=== PATIENT | female | born 1970 | race Asian ===

== ENCOUNTER 2019-06-05 23:05 | Inpatient (IN) | payer MEDICAID ==
[~2019-06-05] VITALS: Ht 162.6 cm; Wt 83.0 kg
[~2019-06-05 23:05] MED LIST: ASCO500T11 PO; ATOR20TA50 PO; FENO160T8 PO; LEVO25TA6 PO; METF-370 PO; OMEG1CAP59 PO; [UNRECOGNIZED DRUG - CODE] PO; [UNRECOGNIZED DRUG - CODE] PO
[2019-06-06] VITALS (28 sets, daily range): BP systolic 66–121; BP diastolic 36–76
[2019-06-06 00:10] LABS: Basophils # (auto) 0 10 ^3/uL (0-0.2); Basophils % (auto) 0.2 % (0.0-2.0); Eosinophils # (auto) 0 10 ^3/uL (0-0.8); Eosinophils % (auto) 0.2 % (0.0-7.0); Monocytes # (auto) 0.6 10 ^3/uL (0-1.3)
[2019-06-06 00:12] LABS: Hemoglobin 8.3 g/dL (12.2-16.2); Lymphocytes # (auto) 0.8 10 ^3/uL (0.4-5.4); Lymphocytes % (auto) 7.4 % (10.0-50.0); Mean Corpuscular Hemoglobin 28.1 pg (28.0-32.0); Mean Corpuscular Hgb Conc. 33.1 g/dL (32.0-36.0); Mean Corpuscular Volume 84.8 fL (80.0-100.0); Monocytes % (auto) 6.1 % (0.0-12.0); Neutrophils % (auto) 86.1 % (37.0-80.0); Platelet Count (auto) 315 10^3/uL (140-450); Red Blood Cells 2.95 10^6/uL (4.0-5.20); Red Cell Distribution Width 16.5 % (11.8-14.3); White Blood Cell 10.5 10^3/uL (4.4-10.8)
[2019-06-06] MEDS ORDERED: SODIUM CHLORIDE 0.9% 1,000 ML IV ONE ×2 (00:15→01:15)
[2019-06-06] MEDS ORDERED: cefTRIAXone 1GM/50ML D5W 50 ML IV ONE (00:15)
[2019-06-06] MEDS ORDERED: PHENYLEPHRINE IV 250 ML IV ONE (00:15)
[2019-06-06 00:33] LABS: Alanine Aminotransferase 23 U/L (13-56); Albumin 2.3 g/dL (3.4-5.0); Anion Gap 14 (5-15); Aspartate Aminotransferase 28 U/L (15-37); BUN/Creatinine Ratio 18.8; Blood Urea Nitrogen 15 mg/dL (7-18); Calcium 8.1 mg/dL (8.5-10.1); Carbon Dioxide 17 mmol/L (21-32); Chloride 99 mmol/L (98-107); GFR African American 98 mL/min; GFR Non-African American 81 mL/min; Glucose 121 mg/dL (74-106); Potassium 3.1 mmol/L (3.5-5.1); Sodium 130 mmol/L (136-145)
[2019-06-06 00:37] LABS: Urine Bacteria MANY /hpf (None Seen); Urine Blood TRACE /uL (Negative); Urine Hyaline Cast FEW /lpf (0 - 2); Urine Mucus FEW (None Seen); Urine Specific Gravity 1.011 (1.001-1.035); Urine WBC 67 /hpf (0 - 5); Urine WBC Clumps PRESENT /hpf (None Seen)
[2019-06-06 00:38] LABS: Alkaline Phosphatase 112 U/L (45-117); INR 1.28 (0.9-1.15); Lactic Acid w/Reflex 2.1 mmol/L (0.4-2.0); Partial Thromboplastin Time 39.4 sec (23.64-32.05); Total Protein 6.5 g/dL (6.4-8.2)
[2019-06-06] MEDS: NOREPINEPHRINE 8 MG/250ML KIT 250 ML IV SCH ×2 (01:09→22:14)
[2019-06-06] MEDS ORDERED: DOCUSATE SOD 100 MG CAP PO PRN (01:15)
[2019-06-06] MEDS ORDERED: ALBUTEROL SULF 2.5 MG/0.5ML(0.5%) NEB SOLN NEB PRN (01:15)
[2019-06-06] MEDS ORDERED: DEXTROSE (50%) 50ML SYRG IV PRN (01:15)
[2019-06-06] MEDS ORDERED: MORPHINE SULFATE 4 MG/ML SYR/VIAL IV PRN (01:15)
[2019-06-06] MEDS ORDERED: IPRATROPIUM BROM 0.5 MG/2.5ML INH SOL NEB PRN (01:15)
[2019-06-06] MEDS: POTASSIUM CHL 20MEQ/100ML 100 ML IV SCH ×2 (02:26→05:29)
[2019-06-06] MEDS: ACCU-CHEK COMFORT CURVE STRIP VI SCH ×5 (04:56→20:20)
[2019-06-06] MEDS: InsuLIN REG 1unit/0.01ml Soln (100units/ml) SC SCH ×5 (05:03→20:00)
[2019-06-06] MEDS: ACETAMINOPHEN 325 MG TAB PO PRN (05:31)
[2019-06-06 05:43] LABS: Eosinophils # (auto) 0 10 ^3/uL (0-0.8); Lymphocytes # (auto) 0.5 10 ^3/uL (0.4-5.4)
--- NOTE | 2019-06-06 05:44 | NUR ---
PRN MN TX NOT INDICATED AT THIS TIME. PT RESTING COMFORTABLE. NO SOB OR ANY OTHER RESPIRATORY DISTRESS NOTED. PT ON 2L/MIN VIA NC, 99% O2 SATS. BS ARE CLEAR T AUSCULTATION. WILL CONTINUE TO MONITOR PT.
[2019-06-06 05:46] LABS: Basophils # (auto) 0 10 ^3/uL (0-0.2); Basophils % (auto) 0.2 % (0.0-2.0); Eosinophils % (auto) 0.1 % (0.0-7.0); Hematocrit 25.5 % (36.0-46.0); Lymphocytes % (auto) 3.6 % (10.0-50.0); Mean Corpuscular Hemoglobin 27.5 pg (28.0-32.0); Mean Corpuscular Hgb Conc. 31.4 g/dL (32.0-36.0); Mean Corpuscular Volume 87.4 fL (80.0-100.0); Monocytes # (auto) 0.4 10 ^3/uL (0-1.3); Monocytes % (auto) 2.5 % (0.0-12.0); Neutrophils # (auto) 14.1 10 ^3/uL (1.6-8.6); Neutrophils % (auto) 93.6 % (37.0-80.0); Platelet Count (auto) 362 10^3/uL (140-450); Red Blood Cells 2.92 10^6/uL (4.0-5.20); Red Cell Distribution Width 16.5 % (11.8-14.3)
[2019-06-06 05:57] LABS: Calcium 7.5 mg/dL (8.5-10.1); Potassium 3.6 mmol/L (3.5-5.1)
[2019-06-06] MEDS: LEVOTHYROXINE SODIUM 25 MCG TAB PO SCH (06:54)
[2019-06-06] MEDS: PHENYLEPHRINE IV 250 ML IV SCH ×3 (07:15→15:35)
[2019-06-06] MEDS ORDERED: LORazepam 2MG/ML-1ML VIAL ONE (08:21)
[2019-06-06] MEDS ORDERED: LORazepam 2MG/ML-1ML VIAL IV PRN ×2 (08:30→13:45)
[2019-06-06] MEDS ORDERED: SODIUM CHLORIDE 0.9% 1,000 ML IV SCH (08:45)
[2019-06-06] MEDS ORDERED: MORPHINE SULF INJ 2 MG/ML SYRINGE 1ML IV PRN (09:00)
[2019-06-06] MEDS ORDERED: VANCOMYCIN PER PHARMACY 0 MG IV SCH (11:30)
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
--- NOTE | 2019-06-06 12:00 | NUR ---
WOUND CARE NOTE: VCP 500 AIR BED ORDERED AT THIS TIME. PATIENT TO BE PLACED, PENDING DELIVERY BY BILLY WALDRON
[2019-06-06] MEDS: ENOXAPARIN SOD 40 MG/0.4 ML SYRINGE SC SCH (12:23)
[2019-06-06] MEDS: ATORVASTATIN 20 MG TAB PO SCH (12:23)
[2019-06-06] MEDS: SODIUM CHLORIDE 0.9% 1,000 ML IV SCH ×2 (12:31→19:50)
[2019-06-06] MEDS: cefTRIAXone 1GM/50ML D5W 50 ML IV SCH (12:31)
[2019-06-06] MEDS ORDERED: IOHEXOL 350 MG/ML 100ML IJ ONE (13:52)
[2019-06-06] MEDS ORDERED: VANCOMYCIN 1GM/250ML 250 ML IV SCH (14:00)
--- NOTE | 2019-06-06 16:45 | NUR ---
Admit to ICU TOMASZ VIDES admitted to ICU via gurney on security monitor, and portable 02. Patient transferred to bed, connected to unit monitoring and oxygen, and weighed by bed scale. Patient oriented to JOSE RAMON IZAGUIRRE RN primary RN, unit, room, bed, and unit policies regarding patient care and visiting hours. All questions and concerns addressed, patient verbalized understanding.
--- NOTE | 2019-06-06 19:01 | NUR ---
RT NOTE PT ASSESSED BY RT. PT ON 2LPM O2 WITH NC. PT TOLERATING WELL. B/S CLEAR. PT RESPONDS APPROPRIATELY TO RT QUESTIONS. PT SHOWING NO SIGNS OF RESP DISTRESS. PT DENIES ANY SOB. PT AWARE TO HAVE RT PAGED IF PRN TX NEEDED.
--- NOTE | 2019-06-06 20:00 | NUR ---
RECIEVED PATIENT RESTING WITH EYES CLOSED BUT EASILY AROUSABLE, RESPONDS APPROPRIATLY TO QUESTIONS AND SPEECH IS CLEAR, DENIES ANY PAIN, AFEBRILE, BP LOW IN 70'S, TITRATING LEVOPHED DRIP AT THIS TIME, SEE INTERVENTIONS FOR HEAD TO TOE ASSESSMENT AND VITAL SIGNS, PT REPOSITONED TO RIGHT SIDE, CLEANSED OF SMALL FORM BRN STOOL, OPTIFOAM DRSG OVER COCCYX AREA AND LEFT ISCHIUM INTACT
[2019-06-06] MEDS: levETIRAcetam 500 MG TAB PO SCH (20:22)
--- NOTE | 2019-06-06 21:30 | NUR ---
SPOKE WITH PTS BROTHER CLARA, UPDATE GIVEN ON PT VS,MEDICATION FOR BP SUPPORT, EXPRESSES DISAPOINTMENT IN NOT BEING ABLE TO VISIT, REASSURED TO HE CAN CALL ANYTIME FOR UPDATES
[2019-06-07] VITALS (83 sets, daily range): BP systolic 75–152; BP diastolic 38–99
--- NOTE | 2019-06-07 | NUR ---
PT REQUESTING "TYLENOL" FOR GENERALIZED DISCOMFORT, TYLENOL 650MG PO GIVEN, PT SIPS A CUP AT A TIME OF H20 APPROXIMATELY Q 2 HRS WITHOUT DIFFICULTY SWALLOWING
[2019-06-07] MEDS: ACETAMINOPHEN 325 MG TAB PO PRN ×4 (00:22→20:22)
[2019-06-07] MEDS: SODIUM CHLORIDE 0.9% 1,000 ML IV SCH ×3 (00:41→21:19)
[2019-06-07] MEDS: NOREPINEPHRINE 8 MG/250ML KIT 250 ML IV SCH ×2 (01:32→20:00)
--- NOTE | 2019-06-07 03:00 | NUR ---
PT REPOSITONED TO LEFT SIDE,PARTIAL WANDA CHANGED AFTER PAD NOTED TO BE MOIST NO BM, THE SKIN OPENING NOTED TO RIGHT ISCHIUM 2CMX 1.5 CM WITH TUNNELING APPROX 2.5 CM, AT THIS TIME COVERED WITH OPTIFOAM DRG
--- NOTE | 2019-06-07 03:10 | NUR ---
PT FEBRILE TEMP 101.2 AND C/O HEADACHE SCALE #4 REQUESTING TYLENOL, 650 MG GIVEN PO
[2019-06-07 04:36] LABS: Basophils # (auto) 0 10 ^3/uL (0-0.2); Monocytes # (auto) 0.8 10 ^3/uL (0-1.3)
[2019-06-07 04:40] LABS: Basophils % (auto) 0.2 % (0.0-2.0); Eosinophils # (auto) 0.4 10 ^3/uL (0-0.8); Eosinophils % (auto) 2.2 % (0.0-7.0); Hemoglobin 7.6 g/dL (12.2-16.2); Lymphocytes # (auto) 0.8 10 ^3/uL (0.4-5.4); Lymphocytes % (auto) 4.6 % (10.0-50.0); Mean Corpuscular Hgb Conc. 33.1 g/dL (32.0-36.0); Mean Corpuscular Volume 84.7 fL (80.0-100.0); Monocytes % (auto) 4.2 % (0.0-12.0); Neutrophils # (auto) 16.4 10 ^3/uL (1.6-8.6); Neutrophils % (auto) 88.8 % (37.0-80.0); Platelet Count (auto) 414 10^3/uL (140-450); Red Blood Cells 2.72 10^6/uL (4.0-5.20); Red Cell Distribution Width 16.5 % (11.8-14.3); White Blood Cell 18.4 10^3/uL (4.4-10.8)
[2019-06-07 04:42] LABS: Albumin 1.8 g/dL (3.4-5.0); BUN/Creatinine Ratio 20.6; Calcium 7.5 mg/dL (8.5-10.1); Potassium 3.4 mmol/L (3.5-5.1)
[2019-06-07 04:45] LABS: Bilirubin, Total 0.7 mg/dL (0.2-1.0); Total Protein 5.4 g/dL (6.4-8.2)
[2019-06-07] MEDS: InsuLIN REG 1unit/0.01ml Soln (100units/ml) SC SCH ×6 (06:15→20:00)
--- NOTE | 2019-06-07 07:00 | NUR ---
RECEIVED REPORT FROM [employer] ASSEMBLER. PT AWAKE ALERT AND ORIENTED. DENIES ANY DISCOMFORT AT THIS TIME. PT STILL ON LEVOPHED TO KEEP SBP > 90. INITIAL ASSESSMENT COMPLETED, SEE PHYSICAL ASSESSMENT FOR DATA.
--- NOTE | 2019-06-07 07:25 | NUR ---
Respiratory note: PT ASSESSED FOR PRN TX. PT AWAKE, ALERT AND RESPONSIVE. PT FOUND ON 2 LPM NC. HR: 101, RR:22. SP02: 100%. B/S ARE CLEAR. PT IS IN NO DISTRESS AT THIS TIME. INFORMED PT TO HAVE RT PAGED IF THEY BECOME SOB. NO TX INDICATED AT THIS TIME.
[2019-06-07] MEDS: ACCU-CHEK COMFORT CURVE STRIP VI SCH ×5 (08:00→20:21)
[2019-06-07] MEDS: PHENYLEPHRINE IV 250 ML IV SCH ×2 (08:15→16:35)
--- NOTE | 2019-06-07 09:00 | NUR ---
WOUND CARE DONE .
[2019-06-07] MEDS: cefTRIAXone 1GM/50ML D5W 50 ML IV SCH (10:38)
[2019-06-07] MEDS: LEVOTHYROXINE SODIUM 25 MCG TAB PO SCH (10:39)
[2019-06-07] MEDS: ATORVASTATIN 20 MG TAB PO SCH (10:39)
[2019-06-07] MEDS: levETIRAcetam 500 MG TAB PO SCH ×2 (10:39→21:40)
[2019-06-07] MEDS: ENOXAPARIN SOD 40 MG/0.4 ML SYRINGE SC SCH (10:40)
[2019-06-07 10:51] LABS: BUN/Creatinine Ratio 17.2; Calcium 7.9 mg/dL (8.5-10.1); Potassium 3.2 mmol/L (3.5-5.1)
--- NOTE | 2019-06-07 11:00 | NUR ---
HAD SMALL AMOUNT OF BM, BROWN AND SOFT IN CONSISTENCY. KEPT PT CLEAN AND REPOSITIONED FOR COMFORT.
[2019-06-07] MEDS ORDERED: VANCOMYCIN 1GM/250ML 250 ML IV SCH (12:00)
[2019-06-07] MEDS ORDERED: POTASSIUM CHLORIDE 40 MEQ, LIDOCAINE 1% (LOCAL ANESTH.) 4 ML in SODIUM CHL 0.9% 100 ML IV ONE (12:30)
--- NOTE | 2019-06-07 12:40 | NUR ---
NUTRITION CONSULT/ASSESSMENT NOTES Please refer to link notes of nutrition screen form filed under the intervention section of the plan of care for further details. Est. Energy Needs: 2914-7079 kcal ( 23-25 kcal/kg BW) - for quadriplegia Est. Protein Needs: 72-90 gms/day (1.2-1.5 gms/kg BW). Will continue to monitor pertinent labs and reassess nutrient need prn Addendum: 06/07/19 at [address] Amended: Links added.
[2019-06-07] MEDS: MAGNESIUM SULFATE 1GM/100ML 100 ML IV SCH ×2 (13:27→14:26)
[2019-06-07] MEDS ORDERED: MEROPENEM 1GM IVPB 100 ML IV ONE (13:45)
[2019-06-07] MEDS ORDERED: MEROPENEM 1GM IVPB 100 ML IV SCH (14:00)
[2019-06-07] MEDS ORDERED: POTASSIUM CHL 20MEQ/100ML 200 ML IV ONE (14:10)
--- NOTE | 2019-06-07 14:35 | NUR ---
ACCU CHECK, 133- NO COVERAGE GIVEN. PT STILL NPO EXCEPT MEDS.
--- NOTE | 2019-06-07 16:04 | NUR ---
ACCU CHECK- 159, 2 UNITS REGULAR INSULIN SQ GIVEN.
--- NOTE | 2019-06-07 16:07 | NUR ---
SEEN BY DR KAPOOR.
--- NOTE | 2019-06-07 18:27 | NUR ---
Respiratory note: AT BEDSIDE TO ASSESS PT FOR PRN TX. TX NOT INDICATED AT THIS TIME. BS ARE CLEAR/ DIMINISHED T/O. WILL CONTINUE TO MONITOR.
--- NOTE | 2019-06-07 18:44 | NUR ---
PT TOLERATED DIET WELL. CONSUMED 50% OF FOOD SERVED.
--- NOTE | 2019-06-07 19:02 | NUR ---
Called/paged called re:pt.status. Waiting for call back. Continue care.
--- NOTE | 2019-06-07 19:07 | NUR ---
returned call Dr. Blandon returned call, updated on patient status and reason for call, orders received. Continue care.
--- NOTE | 2019-06-07 20:00 | NUR ---
ADMITTED WITH DYSPNEA AND UTI. ALERT. ORIENTED. LUNGS CLEAR. ON 2LNP. NO DYSPNEA. ABDOMEN SLIGHTLY ROUND AND SOFT. INCONTINENT OF A SMALL BROWN FORMED STOOL. DIAZ SIZE [address] CLEAR YELLOW LIQUID TO DOWN DRAIN BAG. PALE. MOVES ARMS. MOVES LEGS WEAKLY. SEE WOUND NOTES. DAILY WOUND DRESSING CHANGE HAS BEEN DONE. ALL PULSES PALPABLE. TEMP 99.3 , PATIENT REQUESTED TYLENOL FOR PAIN, HAS MULTIPLE BLANKETS ON AND STILL FEELS COOL (STATED). SKIN IS ACTUALLY WARM. SMALL AMOUNT OF DRNG ON SACRAL WOUND DRESSING. TOOK REGULAR DIET 50%. HAS DRANK MILK AND WATER THIS HOUR. CALL IN TO DR VASQUEZ TO DISCUSS ACCUCHECK SCHEDULE. HAS A LEFT IJ TLC WITH CLEAN, CURRENT DRESSING. EEG NORMAL TODAY PER REPORT. ON LEVOPHED FOR BLOOD PRESSURE SUPPORT. NORMAL SALINE AT 120CC/HR.
[2019-06-07] MEDS: MEROPENEM 1GM IVPB 100 ML IV SCH (21:40)
--- NOTE | 2019-06-07 22:00 | NUR ---
TOOK SOME BLANKETS OFF. NO LONGER FEELING COLD. TEMP DOWN TO 98.9. DRANK WATER. NO SEIZURE ACTIVITY. REPOSITIONED. DRY LIPS. MARIAMA. WEAK. IV SITE SHOWS NO REDNESS, DRNG OR SWELLING.
[2019-06-07 22:14] LABS: Alcohol, Urine < 3.0 mg/dL (0-5); Amphetamine Screen, Urine NEGATIVE (NEGATIVE); Barbiturate Scree,Urine NEGATIVE (NEGATIVE); Benzodiazephine Screen, Urine NEGATIVE (NEGATIVE); Cannabinoid Screen, Urine NEGATIVE (NEGATIVE); Cocaine Screen, Urine NEGATIVE (NEGATIVE); Opiate Scree,Urine NEGATIVE (NEGATIVE); Phencyclidine Screen, Urine NEGATIVE (NEGATIVE)
[2019-06-08] VITALS (96 sets, daily range): BP systolic 71–155; BP diastolic 44–95
--- NOTE | 2019-06-08 | NUR ---
REPOSITIONED. DRANK WATER. LUNGS CLEAR. 2LNP. NO NAUSEA. NO PAIN. ELEVATED TEMPERATURE 100.5. ICE BAG TO BAG OF NECK AND BOTH AXILLA. BUT BEFORE I LEFT THE ROOM SHE ASKED ME TO TAKE OUT THE CERVICAL ICE BAG, PLACED IT IN THE GROIN. NO LEAKAGE FROM THE DIAZ CATHETER. ST WITHOUT ECTOPY. [facility] HAS A SECURE, CLEAN, CURRENT DRESSING.
[2019-06-08] MEDS: PHENYLEPHRINE IV 250 ML IV SCH ×3 (00:55→16:19)
--- NOTE | 2019-06-08 02:00 | NUR ---
ORAL CARE. LIP BALM FOR DRY LIPS. SINUS TACHYCARDIA 108. TEMP 99.3. NO LEAK FROM HER DIAZ. ICE BAGS ON . DECREASING LEVOPHED.
--- NOTE | 2019-06-08 03:47 | NUR ---
AM LABS DRAWN
[2019-06-08] MEDS: InsuLIN REG 1unit/0.01ml Soln (100units/ml) SC SCH ×6 (04:00→20:37)
[2019-06-08] MEDS: ACCU-CHEK COMFORT CURVE STRIP VI SCH ×6 (04:27→20:36)
[2019-06-08 04:57] LABS: Basophils # (auto) 0 10 ^3/uL (0-0.2); Eosinophils # (auto) 0.1 10 ^3/uL (0-0.8); Hematocrit 22.5 % (36.0-46.0); Hemoglobin 7.3 g/dL (12.2-16.2); Lymphocytes # (auto) 1.3 10 ^3/uL (0.4-5.4); Monocytes # (auto) 0.6 10 ^3/uL (0-1.3); Red Blood Cells 2.67 10^6/uL (4.0-5.20)
[2019-06-08 05:00] LABS: Basophils % (auto) 0.3 % (0.0-2.0); Eosinophils % (auto) 0.6 % (0.0-7.0); Lymphocytes % (auto) 8.9 % (10.0-50.0); Mean Corpuscular Hemoglobin 27.4 pg (28.0-32.0); Mean Corpuscular Hgb Conc. 32.5 g/dL (32.0-36.0); Mean Corpuscular Volume 84.3 fL (80.0-100.0); Monocytes % (auto) 4.5 % (0.0-12.0); Neutrophils # (auto) 12.1 10 ^3/uL (1.6-8.6); Neutrophils % (auto) 85.7 % (37.0-80.0); Platelet Count (auto) 383 10^3/uL (140-450); Red Cell Distribution Width 16.6 % (11.8-14.3); White Blood Cell 14.1 10^3/uL (4.4-10.8)
[2019-06-08 05:09] LABS: Potassium 3.9 mmol/L (3.5-5.1)
[2019-06-08 05:14] LABS: BUN/Creatinine Ratio 15.6; Calcium 7.5 mg/dL (8.5-10.1); Magnesium 2.1 mg/dL (1.6-2.6)
[2019-06-08] MEDS: MEROPENEM 1GM IVPB 100 ML IV SCH ×2 (05:37→13:46)
--- NOTE | 2019-06-08 06:00 | NUR ---
INCONTINENT STOOL. RONDA AREA CLEANED. REPOSITIONED.
--- NOTE | 2019-06-08 06:10 | NUR ---
pt assessed for prn hhn tx. pt is on roomair, spo2 97%, hr 106, rr 18. no s/s of respiratory distress. pt aware to have rt paged if tx indicated. will continue to monitor.
[2019-06-08] MEDS: NOREPINEPHRINE 8 MG/250ML KIT 250 ML IV SCH (06:35)
--- NOTE | 2019-06-08 06:56 | NUR ---
LARGE DARK GREEN PASTY INCONTINENT STOOL. NEW FOAM DRESSINGS TO SACRUM AND LEFT BUTTOCKS WOUND. NEW GOWN. LINEN CHANGE. SHAKING , SAYING SHE IS COLD THIS MORNING. WARM BLANKET PUT ON.
[2019-06-08 09:37] LABS: Free T3 1.51 pg/mL (2.3-4.2); Free T4 (Free Thyroxine) 1.78 ng/dL (0.89-1.76)
[2019-06-08] MEDS: SODIUM CHLORIDE 0.9% 1,000 ML IV SCH ×2 (09:37→18:33)
[2019-06-08] MEDS: levETIRAcetam 500 MG TAB PO SCH ×2 (10:18→21:58)
[2019-06-08] MEDS: ENOXAPARIN SOD 40 MG/0.4 ML SYRINGE SC SCH (10:18)
[2019-06-08] MEDS: ATORVASTATIN 20 MG TAB PO SCH (10:19)
[2019-06-08] MEDS: ACETAMINOPHEN 325 MG TAB PO PRN ×2 (11:17→20:36)
--- NOTE | 2019-06-08 16:11 | NUR ---
assessment Patient is a 48 year old old female in ICU. Per patients brother Jordan prior to admission patient lived home with him and family and functioned with assistance. Per Jordan patient is a quad and patients mother is her caregiver. Patient has a hospital bed and wheelchair for home use. Patients PCP is Dr Ely. I informed [facility] that patients post discharge needs to be determined after she is down graded to the floor and prior to discharge. Jordan verbalized understanding. Addendum: 06/08/19 at 1616 by Lesley DAVIS Amended: Links added.
--- NOTE | 2019-06-08 19:04 | NUR ---
Respiratory note: PT ASSESSED FOR PRN MED NEB TX. HR 100, RR 14, SPO2 99% ON RA. NO S/S OF ANY RESPIRATORY DISTRESS NOTED. ADVISED PT TO CALL IF TX IS NEEDED.
[2019-06-09] VITALS (38 sets, daily range): BP systolic 93–152; BP diastolic 49–89
[2019-06-09] MEDS: ACCU-CHEK COMFORT CURVE STRIP VI SCH ×6 (00:03→20:00)
[2019-06-09] MEDS: InsuLIN REG 1unit/0.01ml Soln (100units/ml) SC SCH ×6 (00:10→20:00)
[2019-06-09] MEDS: SODIUM CHLORIDE 0.9% 1,000 ML IV SCH ×4 (01:39→22:45)
[2019-06-09] MEDS: PHENYLEPHRINE IV 250 ML IV SCH ×3 (01:55→16:44)
[2019-06-09 03:47] LABS: Basophils # (auto) 0 10 ^3/uL (0-0.2); Eosinophils # (auto) 0.1 10 ^3/uL (0-0.8); Hemoglobin 7.6 g/dL (12.2-16.2); Neutrophils # (auto) 5.1 10 ^3/uL (1.6-8.6); Red Cell Distribution Width 16.9 % (11.8-14.3)
[2019-06-09 03:48] LABS: Eosinophils % (auto) 1.3 % (0.0-7.0); Lymphocytes # (auto) 1.1 10 ^3/uL (0.4-5.4); Lymphocytes % (auto) 15.3 % (10.0-50.0); Mean Corpuscular Hemoglobin 27.9 pg (28.0-32.0); Mean Corpuscular Hgb Conc. 33.3 g/dL (32.0-36.0); Mean Corpuscular Volume 83.8 fL (80.0-100.0); Monocytes # (auto) 0.8 10 ^3/uL (0-1.3); Monocytes % (auto) 11.4 % (0.0-12.0); Platelet Count (auto) 374 10^3/uL (140-450); Red Blood Cells 2.74 10^6/uL (4.0-5.20); White Blood Cell 7.1 10^3/uL (4.4-10.8)
--- NOTE | 2019-06-09 04:00 | NUR ---
BATH/ BOWEL MOVEMENT/ DRESSING CHANGE PATIENT IS INCONTINENT TO STOOL X4 DURING NIGHT. PATIENT RECEIVED STOOL SOFTENER ON 06/07/19.DRESSING CHANGED 4 TIMES.CLEANED WITH WOUND CLEANSER , DRIED WITH STERILE GAUZE. APPLIED THERA HONEY INTO OPEN WOUND BED. PACKED ALGINATE ROPE INTO CAVITY. COVERED WOUNDS WITH OPTIFOAM GENTLE DRESSINGS. BATH AND COMPLETE LINEN CHANGE DONE.
[2019-06-09 04:10] LABS: Calcium 7.9 mg/dL (8.5-10.1); Potassium 4.2 mmol/L (3.5-5.1)
[2019-06-09 04:12] LABS: BUN/Creatinine Ratio 42.1
--- NOTE | 2019-06-09 07:05 | NUR ---
RECTAL TUBE INSERTION PATIENT HAD 5 LOOSE BOWEL MOVEMENTS. PATIENT HAS MULTIPLE DECUBITUS ULCERS AND IT GET SOILED WITH BOWEL MOVEMENTS. RECTAL TUBE INSERTED ORDERED BY MD TO PROTECT WOUNDS.
--- NOTE | 2019-06-09 07:30 | NUR ---
AM ASSESSMENT COMPLETED A+O X4 PARAPLEGIC, C/O ALAWAY BEING COLD, HAS BLANKETS WRAPPED UP ALL THE WAY TO HER NECK. CHECKED HER WOUNDS, DRESSINGS REMAIN CDI IN PLACE, RT LEAKING, CLEANED PT. CHUX PAD CHANGED AND REPOSITIONED FOR COMFORT. VSS, AFEBRILE, CENTRAL LINE TO LT IJ BENIGN ALL 3 PORTS PATENT, PT RECEIVING IV ATB. & IVF. EDUCATED PT ON POC. PT VERBALIZED UNDERSTANDING. PT PENDING MRI OF BRAIN AND A PICC FOR IV ATB AT HOME ONCE DC HOME.
[2019-06-09] MEDS: ACETAMINOPHEN 325 MG TAB PO PRN ×2 (08:43→18:07)
--- NOTE | 2019-06-09 09:35 | NUR ---
pt being taken to mri by [facility]anna [facility] & mri crew. blood drawn for ptt.
--- NOTE | 2019-06-09 09:37 | NUR ---
I faxed home IV ATB order to [facility].
[2019-06-09 09:56] LABS: INR 1.16 (0.9-1.15)
[2019-06-09] MEDS ORDERED: ERTAPENEM SOD 1 GM INJ VIAL IV SCH (10:00)
[2019-06-09] MEDS: ERTAPENEM SOD INJ 1 GM in SODIUM CHL 0.9% 50 ML IV SCH (10:38)
[2019-06-09] MEDS: ENOXAPARIN SOD 40 MG/0.4 ML SYRINGE SC SCH (10:38)
[2019-06-09] MEDS: levETIRAcetam 500 MG TAB PO SCH ×2 (10:38→22:44)
[2019-06-09] MEDS: ATORVASTATIN 20 MG TAB PO SCH (10:38)
--- NOTE | 2019-06-09 13:15 | NUR ---
DR. Marquis GUZMAN ROUNDING ON PT. HE OK FOR PT TO BE TRANSFERRED TO FLOOR. MD WILL REVIEW PT'S CHART AND WILL DECIDE IF PT CAN BE DISCHARGED HOME. PT NEEDS AN ID CONSULTATION WITH DR. MARTE.
--- NOTE | 2019-06-09 13:35 | NUR ---
I faxed order for out patient infectious disease follow up to [facility].
--- NOTE | 2019-06-09 14:12 | NUR ---
WOUND CULTURE COLLECTED AND SENT TO LAB. PT'S WOUND DRESSINGS CHANGED. RT WAS LEAKING A LITTLE. RONDA CARE RENDERED. REPOSITIONED FOR COMFORT.
--- NOTE | 2019-06-09 14:54 | NUR ---
I called [facility] and left message for Daksha letting her know that patient's line has not been placed yet. Per social worker clinical Erna [facility] health (patient was previously on service with them) does not have a nurse available until -I relayed this information to nurse Mills-she is going to contact Dr. Kulkarni.
--- NOTE | 2019-06-09 14:54 | NUR ---
PICC line placement Patient educated on need for PICC line placement. All risks and benefits explained and all questions and concerns addressed prior to procedure. Noted past medical history and allergies with no contraindications. INR and Plt counts within acceptable range. 4 fr PICC line inserted via right basilic vein using [employer] US and Tip Location System. Sterile technique with maximum barrier precautions utilized. Blood return obtained from lumen and flushed easily with NS using proper technique. PICC secured with Stat-lock; biodisc and occlusive dressing applied. Stat portable chest x-ray obtained for PICC tip placement. *Baseline Arm Circumference 23 cm. Internal length 43 cm. External length 0. PICC lot #[id number]
--- NOTE | 2019-06-09 14:55 | NUR ---
Okay to use PICC line Xray completed and reviewed. Okay to use PICC line. Lina ORTEGA notified.
--- NOTE | 2019-06-09 14:57 | NUR ---
D/C Planning Per consult for home health Safety Evaluation, Wound Care, and IV abx with Ertapenem 1 gram daily x 2 weeks. MIO Merchant will be working on IV abx. Jodi with [facility] advised me patient is on service with [facility]. Faxed clinical information to [facility] requesting hospital bed to be deliver to patient home upon d/c day, [facility] and [facility] requesting authorization for home health and [facility]. Per Karime with [facility] Ph:( [phone]) patient has been accepted and they will have a nurse available on 06/11/2019 to assist with patient needs. Per Jodi with [facility] authorization for home health is [id number]. Per Lien with [facility] authorization for [facility] is [id number]. Addendum: 06/09/19 at 1507 by LOUIS JOSEPH Amended: Links added.
[2019-06-09] MEDS ORDERED: LIDOCAINE 1% (LOCAL ANESTH.) PF 5ml SDV ID ONE (15:00)
--- NOTE | 2019-06-09 15:00 | NUR ---
NOTIFIED DR. Marquis GALLEGO PT'S HOME HEALTH WON'T BE AVAILABLE UNTIL SATURDAY. PICC LINE ALREADY INSERTED.PT HAS NOT BEEN EVALUATED BY DR. VIDES YET. HE STATE'S PT CAN BE DISCHARGED SATURDAY NIGHT. HE ALSO WANTS DR. VIDES TO BE PAGED TO SEE PT. I NOTIFIED WORKING FOREMAN TO CALL IN CONSULTATION AGAIN. PICC RN FEDER[place] STATES PICC LINE IS IN PLACE. CENTRAL LINE CAN BE REMOVED.
--- NOTE | 2019-06-09 15:27 | NUR ---
CENTRAL LINE REMOVED ORDERED PER DR. NICHOLE. PT TOLERATED PROCEDURE WELL. IVF SWITCHED TO JONES SINGLE LUMEN PICC.
--- NOTE | 2019-06-09 15:40 | NUR ---
I spoke with Daksha at [facility] to let her know patient will be discharged home tomorrow. Faxed current med list, CXR post PICC placement and flush orders to [facility].
--- NOTE | 2019-06-09 16:26 | NUR ---
CALLED TO GIVE REPORT TO JORDAN MORRISON .
[2019-06-09] MEDS: ONDANSETRON HCL 4 MG/2 ML VIAL IV PRN ×2 (18:07→22:45)
--- NOTE | 2019-06-09 20:03 | NUR ---
1929; TELEMETRY DISCONTINUED. TELE BOX 48 CLEANED AND RETURNED TO ICU VIA THE TUBE SYSTEM.
--- NOTE | 2019-06-09 21:21 | NUR ---
2000: PATIENT SEEN AWAKE AND ALERT. WAS TAKING HER DINNER WITH NURSE AIDE ASSISTING. VITAL SIGNS ARE WITHIN NORMAL LIMITS. FINGER STICK BLOOD SUGAR CHECKED 154. REQUESTED FOR NAUSEA MEDICINE WHICH WAS NOT DUE. SAME EXPLAINED TO HER. VERBALIZED UNDERSTANDING.
[2019-06-09] MEDS: HYDROcodone-ACET 5/325MG TAB PO PRN (22:44)
[2019-06-09] MEDS: SODIUM CHLOR 0.9% PF (SALINE LOCK) 10ML VIAL/SYR IV SCH (22:46)
[2019-06-10] MEDS: ACCU-CHEK COMFORT CURVE STRIP VI SCH ×6 (00:10→20:00)
[2019-06-10] MEDS: NOREPINEPHRINE 8 MG/250ML KIT 250 ML IV SCH (01:32)
[2019-06-10 01:57] VITALS: BP 132/60
[2019-06-10] MEDS: PHENYLEPHRINE IV 250 ML IV SCH ×2 (02:55→10:05)
--- NOTE | 2019-06-10 03:15 | NUR ---
0000> PATIENT COMPLAINE OF ITCHY AREA REDDENED AREA ANTERIOR R SHOULDER PROXIMAL STERNAL AREA AND LEFT ANTERIOR SHOULDER. STATED IT IS NEW. PATIENT WAS REASSURED. SHE SLEPT OFF. AWAITING REASSESSMENT AT 0400.
[2019-06-10] MEDS: InsuLIN REG 1unit/0.01ml Soln (100units/ml) SC SCH ×6 (04:00→20:00)
--- NOTE | 2019-06-10 04:07 | NUR ---
0400 FINGERSTICK BLOOD SUGAR DONE. 118MG/DL. PATIENT AWAKE AND CALM. NO PAIN ITCHING STOPPED.
[2019-06-10 05:22] LABS: Basophils # (auto) 0 10 ^3/uL (0-0.2); Eosinophils # (auto) 0.1 10 ^3/uL (0-0.8); Monocytes # (auto) 0.3 10 ^3/uL (0-1.3); Neutrophils # (auto) 2.8 10 ^3/uL (1.6-8.6); Nucleated Red Blood Cells % 0.1 %
[2019-06-10 05:23] LABS: Basophils % (auto) 0.4 % (0.0-2.0); Eosinophils % (auto) 2.8 % (0.0-7.0); Hematocrit 20.8 % (36.0-46.0); Lymphocytes # (auto) 1.5 10 ^3/uL (0.4-5.4); Lymphocytes % (auto) 31.8 % (10.0-50.0); Mean Corpuscular Hemoglobin 27.9 pg (28.0-32.0); Mean Corpuscular Hgb Conc. 32.9 g/dL (32.0-36.0); Mean Corpuscular Volume 84.6 fL (80.0-100.0); Monocytes % (auto) 6.1 % (0.0-12.0); Neutrophils % (auto) 58.9 % (37.0-80.0); Platelet Count (auto) 314 10^3/uL (140-450); Red Blood Cells 2.46 10^6/uL (4.0-5.20); Red Cell Distribution Width 16.5 % (11.8-14.3); White Blood Cell 4.8 10^3/uL (4.4-10.8)
[2019-06-10 05:39] LABS: BUN/Creatinine Ratio 33.3; Calcium 8.2 mg/dL (8.5-10.1); Potassium 4.2 mmol/L (3.5-5.1)
[2019-06-10 05:46] VITALS: BP 146/64
[2019-06-10 05:47] LABS: Hemoglobin 6.9 g/dL (12.2-16.2)
--- NOTE | 2019-06-10 06:02 | NUR ---
CRITICAL LAB CALLED ON PATIENT HB 6.9 DR ANDRES BRUNO CALLED. ORDERED TYPE AND SCREEN AND CBC AT 12NOON TODAY.
[2019-06-10] MEDS: SODIUM CHLORIDE 0.9% 1,000 ML IV SCH ×3 (06:51→23:50)
[2019-06-10 09:13] VITALS: BP 167/82
[2019-06-10] MEDS: ATORVASTATIN 20 MG TAB PO SCH (10:04)
[2019-06-10] MEDS: levETIRAcetam 500 MG TAB PO SCH ×2 (10:04→21:36)
[2019-06-10] MEDS: ENOXAPARIN SOD 40 MG/0.4 ML SYRINGE SC SCH (10:04)
[2019-06-10] MEDS: ERTAPENEM SOD INJ 1 GM in SODIUM CHL 0.9% 50 ML IV SCH (10:04)
[2019-06-10] MEDS: SODIUM CHLOR 0.9% PF (SALINE LOCK) 10ML VIAL/SYR IV SCH ×2 (10:04→21:36)
[2019-06-10 11:49] LABS: Basophils # (auto) 0 10 ^3/uL (0-0.2); Basophils % (auto) 0.8 % (0.0-2.0); Eosinophils # (auto) 0.1 10 ^3/uL (0-0.8); Eosinophils % (auto) 2.5 % (0.0-7.0); Hematocrit 21.7 % (36.0-46.0); Hemoglobin 7.1 g/dL (12.2-16.2); Lymphocytes # (auto) 1.5 10 ^3/uL (0.4-5.4); Lymphocytes % (auto) 27.4 % (10.0-50.0); Mean Corpuscular Hemoglobin 27.5 pg (28.0-32.0); Mean Corpuscular Hgb Conc. 32.8 g/dL (32.0-36.0); Mean Corpuscular Volume 83.8 fL (80.0-100.0); Monocytes # (auto) 0.3 10 ^3/uL (0-1.3); Monocytes % (auto) 5.7 % (0.0-12.0); Neutrophils # (auto) 3.5 10 ^3/uL (1.6-8.6); Neutrophils % (auto) 63.6 % (37.0-80.0); Nucleated Red Blood Cells % 0.1 %; Platelet Count (auto) 339 10^3/uL (140-450); Red Blood Cells 2.59 10^6/uL (4.0-5.20); Red Cell Distribution Width 16.6 % (11.8-14.3); White Blood Cell 5.5 10^3/uL (4.4-10.8)
--- NOTE | 2019-06-10 12:10 | NUR ---
I spoke with Dr. Marquis Kulkarni regarding the plan of care for this patient-he stated patient will discharge home today. I spoke with Aliyah at [facility] [phone] and made her aware, she said they will send nurse out to patient's home tomorrow 06/10. I spoke with Nithya at [facility] to let her know that patient is discharging home today, and that [facility] will send nurse out tomorrow. Nithya will give me a call back regarding delivery time.
--- NOTE | 2019-06-10 12:15 | NUR ---
I spoke with Daksha at [facility] ([phone]) and made her aware that patient will be discharged home today, she said they will deliver [facility]. Per Aliyah at [facility] ([phone]) they will send nurse out tomorrow. I spoke with nurse Menodza and let her know that the home health/IV ATB component is all set up-she asked about transportation home-I relayed this information to social media editor Erna for transportation.
[2019-06-10 13:00] VITALS: BP 151/63
[2019-06-10] MEDS ORDERED: KEP500T PO (13:27)
--- NOTE | 2019-06-10 14:00 | NUR ---
D/C Planning Greenhouse Manager Shonda advised me patient needs transportation home. Faxed transportation form requesting for a 16:30 merchandise pickup/receiving associate time. Per Anju with [facility] transportation has been arrange with [employer] ) via gurney/ oxygen with a 16:30 merchandise pickup/receiving associate. Informed JORDAN Mendoza.
--- NOTE | 2019-06-10 14:48 | NUR ---
I faxed outpatient follow up appointment request to [facility].
--- NOTE | 2019-06-10 18:24 | NUR ---
I received a page from nurse Mendoza at 1730 letting me know that the transportation arranged through [facility] transportation department had come to pick patient up and she wasn't ready so they left. I called [employer] (who transportation was arranged through per delinquency prevention social worker Erna's notes) and spoke with Lilian, she transferred me to [place] who transferred me to his sheet metal shop supervisor Michael who told me that they have no record of anyone that was supposed to transport patient home today ( I was on the phone for at least 30 minutes). I spoke with nurse Mendoza who told me that it was [employer] [phone] who came to pick patient up-I called them and spoke with Matthieu who told me that they could not send someone back to fiber picker patient without new authorization from [facility]. I had already called [facility] transportation department [phone] at 1730 and recording stated that they were closed. I called [facility] [phone] and spoke with [facility] who told me that they could not transport patient because they do not have contract with [facility]. I spoke with nurse Mendoza and let her know that unless she could have someone in patient's family pick patient up that patient would have to stay until tomorrow.
--- NOTE | 2019-06-10 18:27 | NUR ---
Unable to transport today Transportation arrived at 1615. This nurse was unable to finish getting the patient's discharge ready by that time and get pictures of the wounds taken and contact the doctor regarding the Patterson and rectal tube. Transportation gave this nurse their number to call back to arrange cone picker later this day. This nurse got the pictures taken of the patient's wounds and finished the discharge paperwork. [place] back from the doctor that the patient is to leave with her Patterson catheter and PICC line, but to remove the rectal tube. Then this nurse call the transportation company back but they stated they were unable to pick her up and that transportation needed to be set up through [facility]. This nurse contacted the president financial institution case management social worker, Shonda, to get the number. She said she would call and try to get transportation. She was also unable to find transportation for the patient tonight. This nurse contacted the family member and informed them of the situation. Informed patient. Left message for the doctor that the patient is unable to leave tonight.
--- NOTE | 2019-06-10 19:17 | NUR ---
Transport attempt Contacted [employer] as this was the company noted in the director of social media marketing note. They said they were unable to set up transportation because they would need [facility] authorization. This nurse stated that there was a previous time set up and asked if they could use the authorization from that. They looked in the system and said they didn't see any record of that set up in their system for 1629 today.
--- NOTE | 2019-06-10 19:28 | NUR ---
Opening Shift Note Received report from jeremie Mendoza RN. Assumed care of patient, awake and alert. No S/S of distress/SOB or pain. Instructed on POC and to call for assist PRN, will continue to monitor for changes Q1hr and PRN. Bed placed in lowest position, bed alarm turned on and call light within reach.
[2019-06-10 21:33] VITALS: BP 156/72
[2019-06-10] MEDS: HYDROcodone-ACET 5/325MG TAB PO PRN (21:36)
--- NOTE | 2019-06-10 21:36 | NUR ---
GIVEN NORCO FOR BACK PAIN. WILL MONITOR
--- NOTE | 2019-06-10 23:30 | NUR ---
PATIENT HAS BEEN COMPLAINING OF ITCHING TO CHEST AND ABDOMEN FROM THE ADHESIVES SITES FROM THE LEADS. TJ NOGUEIRA MD.
--- NOTE | 2019-06-10 23:43 | NUR ---
PAGED AND RECEIVED AND ORDER FOR HYDROCORTISONE CREAM TOPICAL % BID TO AFFECTED AREA. ORDER NOTED
[2019-06-10] MEDS: HYDROCORTONE 1% TOPICAL CREAM 30 GM TUBE TOP SCH (23:45)
--- NOTE | 2019-06-10 23:45 | NUR ---
HYDROCORTISONE CREAM NOT ADMINISTERED RELATED TO PHARMACY IS CLOSED AT THIS TIME. PATIENT'S ITCHING IS DIMINISHING WITH THE USE OF COLD PACKS AND COLD WASHCLOTHS. PATIENT IS RESTING WITH EYES CLOSED, NO DISTRESS NOTED. WILL MONITOR.
--- NOTE | 2019-06-11 | NUR ---
APPLIED COLD PACK TO RASHES AND COLD WASHCLOTH WITH SOME RELIEF. PATIENT IS RESTING IN BED WITH EYES CLOSED, NO DISTRESS NOTED.
[2019-06-11] MEDS: InsuLIN REG 1unit/0.01ml Soln (100units/ml) SC SCH ×4 (04:00→12:00)
[2019-06-11] MEDS: ACCU-CHEK COMFORT CURVE STRIP VI SCH ×4 (04:25→12:17)
[2019-06-11 05:59] LABS: Hematocrit 16.4 % (36.0-46.0); Mean Corpuscular Hemoglobin 28.2 pg (28.0-32.0); Platelet Count (auto) 445 10^3/uL (140-450); Red Blood Cells 1.97 10^6/uL (4.0-5.20); Red Cell Distribution Width 16.5 % (11.8-14.3)
[2019-06-11 06:00] VITALS: BP 157/90
--- NOTE | 2019-06-11 06:10 | NUR ---
CRITICAL LAB ERIC FROM LAB CALLED AND REPORTS A HEMOGLOBIN OF 5.6. WILL NOTIFY
[2019-06-11 06:11] LABS: Hemoglobin 5.6 g/dL (12.2-16.2)
[2019-06-11 06:12] LABS: Band Neutrophils % (manual) 0; Basophils % (manual) 0 (0.0-2.0); Blast Cells 0; Promyelocytes % 0; Reactive Lymphocytes 0
--- NOTE | 2019-06-11 06:12 | NUR ---
MD CONTACTED AND LEFT A MESSAGE WITH ANSWERING SERVICE. AWAITING CALL BACK.
--- NOTE | 2019-06-11 06:15 | NUR ---
CALLED BACK MD LEVINE CALLED BACK AND RECEIVED THE FOLLOWING ORDERS: 1 UNIT OF PRBC, TOTAL BILIRUBIN, DIRECT BILIRUBIN, LDH, HAPTOGLOBIN, RETICULOCYTE COUNT, DIRECT ANTIBODIES/ANTIGLOBULIN. ORDERS NOTED.
--- NOTE | 2019-06-11 06:15 | NUR ---
MD LEVINE ORDERED TO D/C LOVENOX. ORDER NOTED
[2019-06-11 06:20] LABS: BUN/Creatinine Ratio 26.9
[2019-06-11 07:06] LABS: Eosinophils % (manual) 3 (0-7); Lymphocytes % (manual) 33 (10.0-50.0); Metamyelocytes % 1; Monocytes % (manual) 3 (0-12); Myelocytes % 1
[2019-06-11] MEDS: SODIUM CHLORIDE 0.9% 1,000 ML IV SCH (08:20)
--- NOTE | 2019-06-11 08:21 | NUR ---
MIRLANDE GUZMAN REGARDING BLOOD TRANSFUSION.
--- NOTE | 2019-06-11 08:29 | NUR ---
REGARDING BLOOD; SPOKE TO Richie GUZMAN REGARDING HEMOGLOBIN. RECEIVED ORDERS FOR A STAT H&H AND IRON PANEL. IF HEMOGLOBIN IS LESS THAN 7.0 TRANSFUSE 1 UNIT OF BLOOD.
[2019-06-11 08:42] LABS: Bilirubin, Direct 0.1 mg/dL (0-0.2); Bilirubin, Total 0.3 mg/dL (0.2-1.0)
[2019-06-11 09:02] VITALS: BP 144/75
--- NOTE | 2019-06-11 09:42 | NUR ---
CALLED LAB REGARDING STAT DRAWS. STATED THEY ARE ON THEIR WAY.
[2019-06-11 10:07] LABS: Hematocrit 22.8 % (36.0-46.0); Hemoglobin 7.4 g/dL (12.2-16.2)
[2019-06-11] MEDS: ERTAPENEM SOD INJ 1 GM in SODIUM CHL 0.9% 50 ML IV SCH (10:13)
[2019-06-11] MEDS: HYDROCORTONE 1% TOPICAL CREAM 30 GM TUBE TOP SCH (10:13)
[2019-06-11] MEDS: ATORVASTATIN 20 MG TAB PO SCH (10:13)
[2019-06-11] MEDS: SODIUM CHLOR 0.9% PF (SALINE LOCK) 10ML VIAL/SYR IV SCH (10:13)
[2019-06-11] MEDS: levETIRAcetam 500 MG TAB PO SCH (10:14)
[2019-06-11 10:30] LABS: % Iron Saturation 9.9 % (15-50)
--- NOTE | 2019-06-11 11:19 | NUR ---
MIRLANDE KAPOOR REGARDING NEURO CLEARANCE FOR DISCHARGE.
--- NOTE | 2019-06-11 11:20 | NUR ---
MIRLANDE VASQUEZ REGARDING BLOOD TRANSFUSION AND DISCHARGE ORDER.
--- NOTE | 2019-06-11 11:50 | NUR ---
SPOKE TO Richie GUZMAN REGARDING BLOOD TRANSFUSION. STATED OKAY TO DISCHARGE WITHOUT TRANSFUSION HEMOGLOBIN IS 7.4.
--- NOTE | 2019-06-11 12:53 | NUR ---
SPOKE TO Richie KAPOOR. CLEARED FROM NEUROLOGY STANDPOINT.
[2019-06-11 13:00] VITALS: BP 127/85
--- NOTE | 2019-06-11 14:01 | NUR ---
D/C toll testboard worker Jose advised me patient is ready to discharge home and patient is needing transportation home. Faxed transportation form requesting for a 14:30 pick up man time. Per Jenn with [facility] transportation has been arrange with Kristin Panchal ) via [employer] with a 15:00 pick up man. Placed followed up called to Latoya with [facility] advising her patient will discharge home today and IV abx dose was given to patient at 10:13am. Informed JORDAN Cobian.
--- NOTE | 2019-06-11 14:01 | NUR ---
DC'D RECTAL TUBE.
--- NOTE | 2019-06-11 15:55 | NUR ---
Discharge instructions given as ordered. Encourage to follow up with PMD as instructed. Instructed to crab picker prescriptions for medications at pharmacy. instructed that home health will come by for infusion tomorrow. All questions and concerns addressed. Patient verbalized understanding. DIAZ CATHETER LEFT IN PLACE PER M.D. REQUEST. Patient taken to vehicle via gurney with all personal belongings, accompanied by [employer]. No distress noted at time of departure.
== END 2019-06-11 15:24 | disposition home health service (06) | DRG 720 ==
LOC: ER 23:05 → EDBD 23:05 → TELE 23:06 → ICU WEST 06-06 16:30 → TELE-CENTR 06-09 17:13
PROVIDERS: ADMIT Hospitalist; ATTEND Hospitalist
PROC: 02HV33Z Insertion of Infusion Device into Superior Vena Cava, Percutaneous Approach (ICD-10-PCS; principal; 2019-06-06)
PROC: 02HV33Z Insertion of Infusion Device into Superior Vena Cava, Percutaneous Approach (ICD-10-PCS; 2019-06-09)
DX: A41.9 Sepsis, unspecified organism (principal); J96.90 Respiratory failure, unspecified, unspecified whether with hypoxia or hypercapnia; R65.21 Severe sepsis with septic shock; G82.50 Quadriplegia, unspecified; L89.154 Pressure ulcer of sacral region, stage 4; E44.0 Moderate protein-calorie malnutrition; L89.214 Pressure ulcer of right hip, stage 4; L89.329 Pressure ulcer of left buttock, unspecified stage; E11.9 Type 2 diabetes mellitus without complications; G95.9 Disease of spinal cord, unspecified; G40.409 Other generalized epilepsy and epileptic syndromes, not intractable, without status epilepticus; E03.9 Hypothyroidism, unspecified; G90.2 Horner's syndrome; Z16.12 Extended spectrum beta lactamase (ESBL) resistance; N39.0 Urinary tract infection, site not specified; R32 Unspecified urinary incontinence; H57.02 Anisocoria; J98.11 Atelectasis; E78.5 Hyperlipidemia, unspecified; Z82.0 Family history of epilepsy and other diseases of the nervous system; Z79.899 Other long term (current) drug therapy; Z82.3 Family history of stroke; Z82.49 Family history of ischemic heart disease and other diseases of the circulatory system; Z82.5 Family history of asthma and other chronic lower respiratory diseases; Z83.3 Family history of diabetes mellitus; Z87.440 Personal history of urinary (tract) infections; Z68.31 Body mass index [BMI] 31.0-31.9, adult
CPT/HCPCS: 36415; 36569; 70450; 70498; 70551; 71045; 71250; 80048; 80053; 80307; 81001; 82247; 82248; 82728; 82962; 83010; 83036; 83540; 83550; 83605; 83615; 83735; 84439; 84443; 84481; 84484; 85007; 85014; 85018; 85025; 85027; 85045; 85610; 85730; 86850; 86900; 86901; 86920; 87040; 87077; 87081; 87086; 87088; 87186; 87205; 93005; 95819; 96361; 96365; 96367; 96372; 96375; G0378; J0696; J1335; J1815; J2001; J2185; J2405; J3480

== ENCOUNTER 2019-09-07 11:19 | Inpatient (IN) | payer MEDICAID ==
[~2019-09-07] VITALS: Ht 162.6 cm; Wt 54.8 kg
[~2019-09-07 11:19] MED LIST changes: +KEP500T PO
[2019-09-07] MEDS ORDERED: SODIUM CHLORIDE 0.9% 1,000 ML IV ONE ×3 (11:30→14:30)
[2019-09-07] MEDS ORDERED: PIPERACILLIN-TAZOB 3.375GM 100 ML IV ONE (11:30)
[2019-09-07 11:46] LABS: Eosinophils # (auto) 0 10 ^3/uL (0-0.8); Hemoglobin 9.1 g/dL (12.2-16.2); Lymphocytes # (auto) 1.3 10 ^3/uL (0.4-5.4); Neutrophils # (auto) 4.5 10 ^3/uL (1.6-8.6); Neutrophils % (auto) 71.3 % (37.0-80.0); White Blood Cell 6.3 10^3/uL (4.4-10.8)
[2019-09-07 11:48] LABS: Basophils # (auto) 0 10 ^3/uL (0-0.2); Basophils % (auto) 0.7 % (0.0-2.0); Eosinophils % (auto) 0.2 % (0.0-7.0); Hematocrit 28.2 % (36.0-46.0); Lymphocytes % (auto) 20.3 % (10.0-50.0); Mean Corpuscular Hemoglobin 24.3 pg (28.0-32.0); Mean Corpuscular Hgb Conc. 32.1 g/dL (32.0-36.0); Mean Corpuscular Volume 75.7 fL (80.0-100.0); Monocytes # (auto) 0.5 10 ^3/uL (0-1.3); Monocytes % (auto) 7.5 % (0.0-12.0); Platelet Count (auto) 373 10^3/uL (140-450); Red Blood Cells 3.73 10^6/uL (4.0-5.20); Red Cell Distribution Width 18.7 % (11.8-14.3)
[2019-09-07 11:57] LABS: Urine Amorphous Crystal FEW /hpf (None Seen); Urine Bacteria MOD /hpf (None Seen); Urine Blood TRACE /uL (Negative); Urine Specific Gravity 1.004 (1.001-1.035); Urine WBC 124 /hpf (0 - 5); Urine WBC Clumps PRESENT /hpf (None Seen)
[2019-09-07 12:04] LABS: Albumin 2.9 g/dL (3.4-5.0); Anion Gap 9 (5-15); BUN/Creatinine Ratio 26.1; Blood Urea Nitrogen 12 mg/dL (7-18); Calcium 8.9 mg/dL (8.5-10.1); Carbon Dioxide 25 mmol/L (21-32); Chloride 94 mmol/L (98-107); GFR African American 186 mL/min; GFR Non-African American 154 mL/min; Glucose 133 mg/dL (74-106); Magnesium 1.8 mg/dL (1.6-2.6); Potassium 3.1 mmol/L (3.5-5.1); Sodium 128 mmol/L (136-145)
[2019-09-07 12:07] LABS: INR 1.11 (0.9-1.15); Partial Thromboplastin Time 33.7 sec (23.64-32.05)
[2019-09-07 12:09] LABS: Alanine Aminotransferase 25 U/L (13-56); Alkaline Phosphatase 133 U/L (45-117); Aspartate Aminotransferase 26 U/L (15-37); Total Protein 7.9 g/dL (6.4-8.2)
[2019-09-07] MEDS ORDERED: ACETAMINOPHEN 650 mg PER 20 mL UD PO ONE (12:15)
[2019-09-07 12:18] LABS: CRP High Sensitivity > 19 mg/dL (< 0.3); Lactate Dehydrogenase 126 U/L (84-246)
[2019-09-07] MEDS ORDERED: POTASSIUM EFFERVESENT TAB 25 MEQ ONE (12:56)
[2019-09-07] MEDS ORDERED: POTASSIUM EFFERVESENT TAB 25 MEQ PO ONE (13:00)
[2019-09-07] MEDS ORDERED: NOREPINEPHRINE 8 MG/250ML KIT 250 ML IV SCH ×2 (14:03→21:00)
[2019-09-07] MEDS ORDERED: NITROGLYCERIN 0.4 MG SL TAB SL PRN (14:15)
[2019-09-07] MEDS ORDERED: ACETAMINOPHEN 325 MG TAB PO PRN (14:15)
[2019-09-07] MEDS ORDERED: MORPHINE SULF INJ 2 MG/ML SYRINGE 1ML IV PRN ×2 (14:15)
[2019-09-07] MEDS ORDERED: VANCOMYCIN PER PHARMACY 1,000 MG IV SCH (14:15)
[2019-09-07] MEDS ORDERED: LORazepam 2MG/ML-1ML VIAL IV PRN (14:15)
[2019-09-07] MEDS: SOD CHL 0.9%/ KCL 20MEQ 1,000 ML IV SCH ×2 (14:24→22:26)
[2019-09-07] MEDS: VANCOMYCIN 750mg/250ml 250 ML IV SCH (15:18)
[2019-09-07] MEDS ORDERED: LEVO75TA6 PO (15:36)
[2019-09-07] MEDS ORDERED: METF-929 PO (15:36)
[2019-09-07] MEDS ORDERED: OMEG100078 PO (15:36)
[2019-09-07] MEDS ORDERED: POM PO (15:40)
[2019-09-07] MEDS ORDERED: BISM262C44 PO (15:43)
[2019-09-07] MEDS ORDERED: [UNRECOGNIZED DRUG - CODE] PO (15:44)
[2019-09-07] MEDS ORDERED: ASPI-498 OR (15:47)
[2019-09-07] MEDS ORDERED: DEXTROSE (50%) 50ML SYRG IV PRN (16:45)
[2019-09-07 16:46] LABS: Cholesterol 131 mg/dL (< 200); Triglycerides 353 mg/dL (< 150)
[2019-09-07 17:00] LABS: HDL Cholesterol 9 mg/dL (40-59); LDL Cholesterol 76 mg/dL (< 100)
[2019-09-07] MEDS: InsuLIN REG 1unit/0.01ml Soln (100units/ml) SC SCH ×2 (17:00→22:26)
[2019-09-07] MEDS: ACCU-CHEK COMFORT CURVE STRIP VI SCH ×2 (17:15→22:24)
[2019-09-07] MEDS ORDERED: DexAMETHasone INJECTION 10 MG in SODIUM CHL 3% 500 ML IV SCH (18:00)
[2019-09-07] MEDS: Ensure Enlive Chocolate 8oz Bottle PO SCH (18:00)
[2019-09-07] MEDS ORDERED: PIPERACILLIN-TAZOB 3.375GM 3.375 GM in D5W 5% 100 ML IV SCH (18:00)
[2019-09-07] MEDS ORDERED: PIPERACILLIN-TAZOB 3.375GM 100 ML IV SCH (18:00)
[2019-09-07] MEDS: HYDROCORTISONE SOD SUCC 100 MG/2ML INJ VIAL IV SCH (18:10)
[2019-09-07] MEDS: FAMOTIDINE (10MG/ML) 2ML VL IV SCH (22:23)
[2019-09-07] MEDS: levETIRAcetam 500 MG TAB PO SCH (22:24)
[2019-09-07] MEDS: GEMFIBROZIL 600 MG TAB PO SCH (22:24)
[2019-09-08] MEDS: HYDROCORTISONE SOD SUCC 100 MG/2ML INJ VIAL IV SCH ×2 (01:20→06:52)
[2019-09-08] MEDS: ACCU-CHEK COMFORT CURVE STRIP VI SCH ×4 (06:54→22:00)
[2019-09-08] MEDS: InsuLIN REG 1unit/0.01ml Soln (100units/ml) SC SCH ×4 (06:54→22:00)
[2019-09-08] MEDS: SOD CHL 0.9%/ KCL 20MEQ 1,000 ML IV SCH (06:54)
[2019-09-08] MEDS: LEVOTHYROXINE SODIUM 25 MCG TAB PO SCH (06:59)
[2019-09-08 07:17] LABS: Basophils # (auto) 0 10 ^3/uL (0-0.2); Eosinophils # (auto) 0 10 ^3/uL (0-0.8); Hematocrit 27.6 % (36.0-46.0); Hemoglobin 8.7 g/dL (12.2-16.2); Lymphocytes # (auto) 0.8 10 ^3/uL (0.4-5.4); Monocytes # (auto) 0.2 10 ^3/uL (0-1.3); Neutrophils # (auto) 6.5 10 ^3/uL (1.6-8.6); White Blood Cell 7.5 10^3/uL (4.4-10.8)
[2019-09-08 07:19] LABS: Basophils % (auto) 0.1 % (0.0-2.0); Lymphocytes % (auto) 11.2 % (10.0-50.0); Mean Corpuscular Hemoglobin 23.9 pg (28.0-32.0); Mean Corpuscular Hgb Conc. 31.6 g/dL (32.0-36.0); Mean Corpuscular Volume 75.6 fL (80.0-100.0); Monocytes % (auto) 2.8 % (0.0-12.0); Neutrophils % (auto) 85.9 % (37.0-80.0); Platelet Count (auto) 522 10^3/uL (140-450); Red Blood Cells 3.65 10^6/uL (4.0-5.20); Red Cell Distribution Width 18.9 % (11.8-14.3)
[2019-09-08 07:32] LABS: INR 1.11 (0.9-1.15); Partial Thromboplastin Time 36.8 sec (23.64-32.05)
[2019-09-08 07:46] LABS: Albumin 2.7 g/dL (3.4-5.0); Calcium 8.3 mg/dL (8.5-10.1); Potassium 3.9 mmol/L (3.5-5.1)
[2019-09-08 07:49] LABS: BUN/Creatinine Ratio 17.4; Bilirubin, Total 0.5 mg/dL (0.2-1.0); Phosphorus 1.5 mg/dL (2.5-4.90); Total Protein 7.6 g/dL (6.4-8.2)
[2019-09-08] MEDS: Ensure Enlive Chocolate 8oz Bottle PO SCH ×3 (08:00→17:27)
[2019-09-08] MEDS: VANCOMYCIN 750mg/250ml 250 ML IV SCH (09:00)
[2019-09-08] MEDS: ATORVASTATIN 20 MG TAB PO SCH (09:49)
[2019-09-08] MEDS: FAMOTIDINE (10MG/ML) 2ML VL IV SCH ×2 (09:49→22:00)
[2019-09-08] MEDS: ENOXAPARIN SOD 40 MG/0.4 ML SYRINGE SC SCH (09:49)
[2019-09-08] MEDS: levETIRAcetam 500 MG TAB PO SCH ×2 (09:49→22:00)
[2019-09-08] MEDS: GEMFIBROZIL 600 MG TAB PO SCH ×2 (09:49→22:00)
[2019-09-08] MEDS ORDERED: PATIENTS OWN MEDICATION PO SCH (10:00)
[2019-09-08] MEDS ORDERED: levoFLOXacin 500MG 100 ML IV ONE (11:45)
[2019-09-08 13:00] VITALS: BP 99/67
[2019-09-08 17:00] VITALS: BP 96/65
[2019-09-08] MEDS: PIPERACILLIN-TAZOB 3.375GM 100 ML IV SCH ×2 (17:44→23:11)
[2019-09-08 22:28] VITALS: BP 95/68
[2019-09-09 05:43] VITALS: BP 155/77
[2019-09-09] MEDS: PIPERACILLIN-TAZOB 3.375GM 100 ML IV SCH ×3 (06:00→17:39)
[2019-09-09] MEDS: ACCU-CHEK COMFORT CURVE STRIP VI SCH ×3 (06:48→17:00)
[2019-09-09] MEDS: LEVOTHYROXINE SODIUM 25 MCG TAB PO SCH (06:48)
[2019-09-09] MEDS: InsuLIN REG 1unit/0.01ml Soln (100units/ml) SC SCH ×3 (06:48→17:00)
[2019-09-09 09:00] VITALS: BP 97/64
[2019-09-09] MEDS ORDERED: levoFLOXacin 500MG 100 ML IV SCH (10:00)
[2019-09-09] MEDS: Ensure Enlive Chocolate 8oz Bottle PO SCH ×3 (10:16→17:40)
[2019-09-09] MEDS: FAMOTIDINE (10MG/ML) 2ML VL IV SCH (10:17)
[2019-09-09] MEDS: levETIRAcetam 500 MG TAB PO SCH (10:17)
[2019-09-09] MEDS: ENOXAPARIN SOD 40 MG/0.4 ML SYRINGE SC SCH (10:17)
[2019-09-09] MEDS: GEMFIBROZIL 600 MG TAB PO SCH (10:17)
[2019-09-09] MEDS: ATORVASTATIN 20 MG TAB PO SCH (10:19)
[2019-09-09] MEDS ORDERED: CIPR-173 PO (11:41)
[2019-09-09] MEDS ORDERED: CEPH-37 PO (11:42)
[2019-09-09 12:35] VITALS: BP 97/64
[2019-09-09 13:00] VITALS: BP 91/67
== END 2019-09-09 18:29 | disposition home or self-care (01) | DRG 720 ==
LOC: EDSEX 11:19 → ER 11:19 → EDBD 11:19 → TELE 11:20 → TELE-WESTW 09-08 10:49
PROVIDERS: ADMIT Hospitalist; ATTEND Internal Medicine Nephrology
DX: A41.9 Sepsis, unspecified organism (principal); E43 Unspecified severe protein-calorie malnutrition; E87.6 Hypokalemia; R74.8 Abnormal levels of other serum enzymes; R79.82 Elevated C-reactive protein (CRP); D63.8 Anemia in other chronic diseases classified elsewhere; E11.65 Type 2 diabetes mellitus with hyperglycemia; G43.909 Migraine, unspecified, not intractable, without status migrainosus; I10 Essential (primary) hypertension; R65.21 Severe sepsis with septic shock; L89.154 Pressure ulcer of sacral region, stage 4; D50.9 Iron deficiency anemia, unspecified; N39.0 Urinary tract infection, site not specified; E03.9 Hypothyroidism, unspecified; E22.2 Syndrome of inappropriate secretion of antidiuretic hormone; E78.00 Pure hypercholesterolemia, unspecified; E78.5 Hyperlipidemia, unspecified; G82.50 Quadriplegia, unspecified; Z79.84 Long term (current) use of oral hypoglycemic drugs; Z82.0 Family history of epilepsy and other diseases of the nervous system; Z82.3 Family history of stroke; Z82.49 Family history of ischemic heart disease and other diseases of the circulatory system; Z82.5 Family history of asthma and other chronic lower respiratory diseases; Z83.3 Family history of diabetes mellitus; Z03.818 Encounter for observation for suspected exposure to other biological agents ruled out
CPT/HCPCS: 36415; 36600; 71045; 80053; 80061; 81001; 82728; 82805; 82962; 83036; 83605; 83615; 83735; 83880; 84100; 84443; 84484; 85025; 85379; 85610; 85730; 86141; 86850; 86900; 86901; 87040; 87086; 93005; 93306; G0378; J1815; J1956; J2543; J3490

== ENCOUNTER 2020-02-29 17:34 | Inpatient (IN) | payer MEDICAID ==
[~2020-02-29] VITALS: Ht 162.6 cm; Wt 56.7 kg
[~2020-02-29 17:34] MED LIST changes: -ASCO500T11 PO; +BISM262C44 PO; +CEPH-37 PO; -LEVO25TA6 PO; +LEVO75TA6 PO; -METF-370 PO; +METF-929 PO; +OMEG100078 PO; -OMEG1CAP59 PO; +POM PO; +[UNRECOGNIZED DRUG - CODE] PO
[2020-02-29] MEDS ORDERED: SODIUM CHLORIDE 0.9% 1,000 ML IV ONE (19:45)
[2020-02-29 20:16] LABS: Basophils # (auto) 0 10 ^3/uL (0-0.2); Basophils % (auto) 0.9 % (0.0-2.0); Eosinophils # (auto) 0.1 10 ^3/uL (0-0.8); Eosinophils % (auto) 2.4 % (0.0-7.0); Hematocrit 30.5 % (36.0-46.0); Hemoglobin 10.1 g/dL (12.2-16.2); Lymphocytes # (auto) 1.8 10 ^3/uL (0.4-5.4); Mean Corpuscular Hgb Conc. 33.1 g/dL (32.0-36.0); Mean Corpuscular Volume 87.5 fL (80.0-100.0); Monocytes # (auto) 0.2 10 ^3/uL (0-1.3); Monocytes % (auto) 4.3 % (0.0-12.0); Neutrophils # (auto) 2.2 10 ^3/uL (1.6-8.6); Neutrophils % (auto) 51.4 % (37.0-80.0); Platelet Count (auto) 298 10^3/uL (140-450); Red Blood Cells 3.49 10^6/uL (4.0-5.20); White Blood Cell 4.4 10^3/uL (4.4-10.8)
[2020-02-29 20:39] LABS: Alanine Aminotransferase 19 U/L (13-56); Albumin 3.7 g/dL (3.4-5.0); Anion Gap 8 (5-15); Aspartate Aminotransferase 15 U/L (15-37); Blood Urea Nitrogen 13 mg/dL (7-18); Calcium 9.1 mg/dL (8.5-10.1); Carbon Dioxide 24 mmol/L (21-32); Chloride 106 mmol/L (98-107); Glucose 131 mg/dL (74-106); Potassium 3.5 mmol/L (3.5-5.1); Sodium 138 mmol/L (136-145)
[2020-02-29 20:43] LABS: Alkaline Phosphatase 53 U/L (45-117); BUN/Creatinine Ratio 20.6; Bilirubin, Total 0.3 mg/dL (0.2-1.0); GFR African American 129 mL/min; GFR Non-African American 107 mL/min; Total Protein 7.4 g/dL (6.4-8.2)
[2020-02-29 20:54] LABS: Urine Bacteria FEW /hpf (None Seen); Urine Blood 2+ /uL (Negative); Urine Hyaline Cast FEW /lpf (0 - 2); Urine Mucus FEW (None Seen); Urine Specific Gravity 1.003 (1.001-1.035); Urine WBC 33 /hpf (0 - 5)
[2020-03-01] MEDS ORDERED: NOREPINEPHRINE 8 MG/250ML KIT 250 ML IV ONE (01:36)
[2020-03-01] MEDS ORDERED: VANCOMYCIN PER PHARMACY 0 MG IV SCH (01:45)
[2020-03-01] MEDS ORDERED: NITROGLYCERIN 0.4 MG SL TAB SL PRN (01:45)
[2020-03-01] MEDS ORDERED: MORPHINE SULF INJ 2 MG/ML SYRINGE 1ML IV PRN (01:45)
[2020-03-01] MEDS ORDERED: DEXTROSE (50%) 50ML SYRG IV PRN (01:45)
[2020-03-01] MEDS ORDERED: LEVO50TA7 PO (01:52)
[2020-03-01] MEDS ORDERED: VANCOMYCIN 1GM/250ML 250 ML IV ONE (02:00)
[2020-03-01] MEDS: NOREPINEPHRINE 8 MG/250ML KIT 250 ML IV SCH (02:01)
[2020-03-01] MEDS: SODIUM CHLORIDE 0.9% 1,000 ML IV SCH ×3 (02:40→21:54)
[2020-03-01] MEDS: PIPERACILLIN-TAZOB 3.375GM 100 ML IV SCH ×3 (05:42→19:03)
[2020-03-01] MEDS: InsuLIN REG 1unit/0.01ml Soln (100units/ml) SC SCH ×4 (05:42→22:00)
[2020-03-01] MEDS: ACCU-CHEK COMFORT CURVE STRIP VI SCH ×4 (05:43→22:00)
[2020-03-01 10:12] LABS: Basophils # (auto) 0.1 10 ^3/uL (0-0.2); Eosinophils # (auto) 0.2 10 ^3/uL (0-0.8); Eosinophils % (auto) 3.7 % (0.0-7.0); Hematocrit 28.9 % (36.0-46.0); Hemoglobin 9.6 g/dL (12.2-16.2); Lymphocytes # (auto) 2.1 10 ^3/uL (0.4-5.4); Lymphocytes % (auto) 34.5 % (10.0-50.0); Mean Corpuscular Hemoglobin 28.8 pg (28.0-32.0); Mean Corpuscular Volume 87.3 fL (80.0-100.0); Monocytes # (auto) 0.4 10 ^3/uL (0-1.3); Monocytes % (auto) 6.4 % (0.0-12.0); Neutrophils # (auto) 3.3 10 ^3/uL (1.6-8.6); Neutrophils % (auto) 54.4 % (37.0-80.0); Platelet Count (auto) 377 10^3/uL (140-450); Red Blood Cells 3.31 10^6/uL (4.0-5.20); Red Cell Distribution Width 16.3 % (11.8-14.3)
[2020-03-01 10:15] LABS: Albumin 3.2 g/dL (3.4-5.0); Calcium 7.7 mg/dL (8.5-10.1); Potassium 3.2 mmol/L (3.5-5.1)
[2020-03-01 10:18] LABS: BUN/Creatinine Ratio 13.8; Bilirubin, Total 0.4 mg/dL (0.2-1.0); Total Protein 6.6 g/dL (6.4-8.2)
[2020-03-01] MEDS ORDERED: ACETAMINOPHEN 325 MG TAB PO ONE ×2 (11:15)
[2020-03-01] MEDS: ENOXAPARIN SOD 40 MG/0.4 ML SYRINGE SC SCH (13:05)
[2020-03-01] MEDS: POTASSIUM CHL 20MEQ/100ML 100 ML IV SCH ×2 (15:48→19:03)
[2020-03-01] MEDS: VANCOMYCIN 1GM/250ML 250 ML IV SCH (15:55)
[2020-03-01] MEDS ORDERED: ASCO100076 PO ×2 (18:04→18:05)
[2020-03-01] MEDS ORDERED: HYDROcodone-ACET 5/325MG TAB PO PRN (18:45)
[2020-03-01] MEDS: ACETAMINOPHEN 325 MG TAB PO PRN (19:04)
[2020-03-02] MEDS: PIPERACILLIN-TAZOB 3.375GM 100 ML IV SCH ×4 (00:20→16:58)
[2020-03-02] MEDS: NOREPINEPHRINE 8 MG/250ML KIT 250 ML IV SCH (01:49)
[2020-03-02] MEDS: VANCOMYCIN 1GM/250ML 250 ML IV SCH ×2 (01:58→14:00)
[2020-03-02] MEDS: InsuLIN REG 1unit/0.01ml Soln (100units/ml) SC SCH ×4 (05:29→23:02)
[2020-03-02] MEDS: ACCU-CHEK COMFORT CURVE STRIP VI SCH ×4 (05:31→23:02)
[2020-03-02] MEDS: HYDROcodone-ACET 5/325MG TAB PO PRN ×3 (06:19→20:25)
[2020-03-02 06:40] LABS: Basophils # (auto) 0 10 ^3/uL (0-0.2); Basophils % (auto) 0.8 % (0.0-2.0); Eosinophils # (auto) 0.3 10 ^3/uL (0-0.8); Eosinophils % (auto) 5.1 % (0.0-7.0); Hematocrit 29.5 % (36.0-46.0); Hemoglobin 9.8 g/dL (12.2-16.2); Lymphocytes # (auto) 1.9 10 ^3/uL (0.4-5.4); Lymphocytes % (auto) 38.3 % (10.0-50.0); Mean Corpuscular Hgb Conc. 33.3 g/dL (32.0-36.0); Mean Corpuscular Volume 87.1 fL (80.0-100.0); Monocytes # (auto) 0.3 10 ^3/uL (0-1.3); Monocytes % (auto) 6.2 % (0.0-12.0); Neutrophils # (auto) 2.5 10 ^3/uL (1.6-8.6); Neutrophils % (auto) 49.6 % (37.0-80.0); Nucleated Red Blood Cells % 0.1 %; Platelet Count (auto) 368 10^3/uL (140-450); Red Blood Cells 3.38 10^6/uL (4.0-5.20); Red Cell Distribution Width 16.1 % (11.8-14.3)
[2020-03-02 06:59] LABS: Calcium 8.3 mg/dL (8.5-10.1); Potassium 3.3 mmol/L (3.5-5.1)
[2020-03-02 07:01] LABS: BUN/Creatinine Ratio 6.9
[2020-03-02] MEDS: SODIUM CHLORIDE 0.9% 1,000 ML IV SCH ×2 (07:45→16:34)
[2020-03-02] MEDS: ENOXAPARIN SOD 40 MG/0.4 ML SYRINGE SC SCH (09:25)
[2020-03-02] MEDS ORDERED: POTASSIUM CHL 20MEQ/100ML 100 ML IV ONE (17:15)
[2020-03-02] MEDS ORDERED: TPN PER PHARMACY IV NR ×9 (20:00)
[2020-03-03] MEDS: PIPERACILLIN-TAZOB 3.375GM 100 ML IV SCH ×3 (00:11→12:00)
[2020-03-03] MEDS: NOREPINEPHRINE 8 MG/250ML KIT 250 ML IV SCH (01:45)
[2020-03-03] MEDS: SODIUM CHLORIDE 0.9% 1,000 ML IV SCH ×2 (04:06→13:47)
[2020-03-03 06:08] LABS: Basophils # (auto) 0 10 ^3/uL (0-0.2); Basophils % (auto) 0.8 % (0.0-2.0); Eosinophils # (auto) 0.2 10 ^3/uL (0-0.8); Eosinophils % (auto) 5.5 % (0.0-7.0); Hematocrit 26.9 % (36.0-46.0); Lymphocytes # (auto) 1.6 10 ^3/uL (0.4-5.4); Lymphocytes % (auto) 44.5 % (10.0-50.0); Mean Corpuscular Hemoglobin 28.9 pg (28.0-32.0); Mean Corpuscular Hgb Conc. 33.3 g/dL (32.0-36.0); Mean Corpuscular Volume 86.8 fL (80.0-100.0); Monocytes # (auto) 0.2 10 ^3/uL (0-1.3); Monocytes % (auto) 5.4 % (0.0-12.0); Neutrophils # (auto) 1.6 10 ^3/uL (1.6-8.6); Neutrophils % (auto) 43.8 % (37.0-80.0); Nucleated Red Blood Cells % 0.1 %; Platelet Count (auto) 295 10^3/uL (140-450); Red Cell Distribution Width 16.2 % (11.8-14.3); White Blood Cell 3.6 10^3/uL (4.4-10.8)
[2020-03-03 06:26] LABS: Potassium 3.4 mmol/L (3.5-5.1)
[2020-03-03] MEDS: ACCU-CHEK COMFORT CURVE STRIP VI SCH ×4 (06:33→21:45)
[2020-03-03 06:34] LABS: BUN/Creatinine Ratio 10.7; Calcium 8.6 mg/dL (8.5-10.1)
[2020-03-03] MEDS: InsuLIN REG 1unit/0.01ml Soln (100units/ml) SC SCH ×4 (06:34→21:46)
[2020-03-03] MEDS: ENOXAPARIN SOD 40 MG/0.4 ML SYRINGE SC SCH (08:31)
[2020-03-03] MEDS: ACETAMINOPHEN 325 MG TAB PO PRN (09:00)
[2020-03-03] MEDS: HYDROcodone-ACET 5/325MG TAB PO PRN (15:44)
[2020-03-03] MEDS ORDERED: POTASSIUM EFFERVESENT TAB 25 MEQ PO ONE (15:45)
[2020-03-03] MEDS: CLINDAMYCIN HCL 150 MG CAP PO SCH ×2 (16:27→21:45)
[2020-03-03] MEDS: levoFLOXacin 500 MG TAB PO SCH (16:28)
[2020-03-03] MEDS: PANTOPRAZOLE 40 MG TAB PO SCH (16:29)
[2020-03-03] MEDS ORDERED: BISMUTH SUBSALICYLATE 262 MG CHEW PO PRN (17:30)
[2020-03-03 21:15] VITALS: BP 105/70
[2020-03-03 22:00] VITALS: BP 105/70
[2020-03-04] MEDS: CLINDAMYCIN HCL 150 MG CAP PO SCH ×2 (05:34→14:24)
[2020-03-04] MEDS: InsuLIN REG 1unit/0.01ml Soln (100units/ml) SC SCH ×2 (06:06→11:30)
[2020-03-04] MEDS: ACCU-CHEK COMFORT CURVE STRIP VI SCH ×2 (06:07→11:30)
[2020-03-04] MEDS ORDERED: LEVOTHYROXINE SODIUM 50 MCG TAB PO SCH (07:00)
[2020-03-04 07:30] LABS: Basophils # (auto) 0 10 ^3/uL (0-0.2); Basophils % (auto) 0.6 % (0.0-2.0); Eosinophils # (auto) 0.2 10 ^3/uL (0-0.8); Eosinophils % (auto) 5.6 % (0.0-7.0); Hematocrit 28.2 % (36.0-46.0); Hemoglobin 9.4 g/dL (12.2-16.2); Lymphocytes # (auto) 1.4 10 ^3/uL (0.4-5.4); Lymphocytes % (auto) 30.8 % (10.0-50.0); Mean Corpuscular Hemoglobin 29.1 pg (28.0-32.0); Mean Corpuscular Hgb Conc. 33.4 g/dL (32.0-36.0); Monocytes # (auto) 0.2 10 ^3/uL (0-1.3); Neutrophils # (auto) 2.6 10 ^3/uL (1.6-8.6); Nucleated Red Blood Cells % 0.1 %; Platelet Count (auto) 327 10^3/uL (140-450); Red Blood Cells 3.24 10^6/uL (4.0-5.20); Red Cell Distribution Width 16.6 % (11.8-14.3); White Blood Cell 4.4 10^3/uL (4.4-10.8)
[2020-03-04 07:44] LABS: Potassium 3.8 mmol/L (3.5-5.1)
[2020-03-04 07:53] LABS: Calcium 8.7 mg/dL (8.5-10.1)
[2020-03-04 08:00] VITALS: BP 133/87
[2020-03-04] MEDS: levoFLOXacin 500 MG TAB PO SCH (09:51)
[2020-03-04] MEDS: ENOXAPARIN SOD 40 MG/0.4 ML SYRINGE SC SCH (09:51)
[2020-03-04] MEDS: PANTOPRAZOLE 40 MG TAB PO SCH (09:51)
[2020-03-04] MEDS ORDERED: SULF400T11 PO (16:46)
[2020-03-04] MEDS ORDERED: SULFAMETHOX W/TRIMETH(800/160MG) DS TAB PO ONE (17:00)
== END 2020-03-04 17:45 | disposition home health service (06) | DRG 720 ==
LOC: EDBD 17:34 → EDUNIT# 17:34 → ER 17:36 → TELE 17:37 → TELE-CENTR 03-03 21:03
PROVIDERS: ADMIT Hospitalist; ATTEND Hospitalist
PROC: 06HY33Z Insertion of Infusion Device into Lower Vein, Percutaneous Approach (ICD-10-PCS; principal; 2020-03-01)
DX: A41.9 Sepsis, unspecified organism (principal); E11.9 Type 2 diabetes mellitus without complications; E03.9 Hypothyroidism, unspecified; E78.5 Hyperlipidemia, unspecified; N39.0 Urinary tract infection, site not specified; R65.21 Severe sepsis with septic shock; Z74.01 Bed confinement status; Z83.3 Family history of diabetes mellitus; Z20.822 Contact with and (suspected) exposure to COVID-19; Z82.49 Family history of ischemic heart disease and other diseases of the circulatory system; G82.50 Quadriplegia, unspecified
CPT/HCPCS: 36415; 71045; 80048; 80053; 80202; 81001; 82962; 83605; 83880; 84484; 85025; 85379; 87040; 87086; 87088; 87186; 87426; 93005; 96360; G0378; J2543; J3480

== ENCOUNTER 2020-03-25 10:59 | Inpatient (IN) | payer MEDICAID ==
[~2020-03-25] VITALS: Ht 162.6 cm; Wt 62.6 kg
[~2020-03-25 10:59] MED LIST changes: +ASCO100076 PO; -CEPH-37 PO; -KEP500T PO; +LEVO50TA7 PO; -LEVO75TA6 PO; -POM PO; +SULF400T11 PO
[2020-03-25 11:47] LABS: Basophils # (auto) 0 10 ^3/uL (0-0.2); Basophils % (auto) 0.7 % (0.0-2.0); Eosinophils # (auto) 0.1 10 ^3/uL (0-0.8); Eosinophils % (auto) 3.4 % (0.0-7.0); Hematocrit 28.1 % (36.0-46.0); Hemoglobin 9.4 g/dL (12.2-16.2); Lymphocytes # (auto) 1.5 10 ^3/uL (0.4-5.4); Lymphocytes % (auto) 35.9 % (10.0-50.0); Mean Corpuscular Hemoglobin 29.2 pg (28.0-32.0); Mean Corpuscular Hgb Conc. 33.4 g/dL (32.0-36.0); Mean Corpuscular Volume 87.5 fL (80.0-100.0); Monocytes # (auto) 0.3 10 ^3/uL (0-1.3); Monocytes % (auto) 7.2 % (0.0-12.0); Neutrophils # (auto) 2.3 10 ^3/uL (1.6-8.6); Neutrophils % (auto) 52.8 % (37.0-80.0); Platelet Count (auto) 236 10^3/uL (140-450); Red Blood Cells 3.22 10^6/uL (4.0-5.20); Red Cell Distribution Width 17.7 % (11.8-14.3); White Blood Cell 4.3 10^3/uL (4.4-10.8)
[2020-03-25 12:07] LABS: Albumin 3.8 g/dL (3.4-5.0); Anion Gap 10 (5-15); Blood Urea Nitrogen 25 mg/dL (7-18); Calcium 8.6 mg/dL (8.5-10.1); Carbon Dioxide 20 mmol/L (21-32); Chloride 110 mmol/L (98-107); Glucose 172 mg/dL (74-106); Potassium 3.5 mmol/L (3.5-5.1); Sodium 140 mmol/L (136-145)
[2020-03-25 12:18] LABS: Urine Bacteria NONE SEEN /hpf (None Seen); Urine Blood Negative /uL (Negative); Urine Specific Gravity 1.009 (1.001-1.035); Urine WBC 4 /hpf (0 - 5)
[2020-03-25 12:20] LABS: Alanine Aminotransferase 19 U/L (13-56); Alkaline Phosphatase 42 U/L (45-117); Aspartate Aminotransferase 23 U/L (15-37); BUN/Creatinine Ratio 17.2; Bilirubin, Total 0.4 mg/dL (0.2-1.0); GFR African American 49 mL/min; GFR Non-African American 41 mL/min
[2020-03-25] MEDS: MORPHINE SULF INJ 2 MG/ML SYRINGE 1ML IV ONE ×2 (14:56→15:00)
[2020-03-25] MEDS ORDERED: ONDANSETRON HCL 4 MG/2 ML VIAL IV ONE (15:00)
[2020-03-25] MEDS ORDERED: SODIUM CHLORIDE 0.9% 1,000 ML IV ONE (15:00)
[2020-03-25] MEDS ORDERED: HYDROcodone-ACET 5/325MG TAB PO ONE (16:30)
[2020-03-25] MEDS ORDERED: diphenhdrAMINE HCL 50 MG/1 ML VL IM ONE (16:30)
[2020-03-25] MEDS ORDERED: cefTRIAXone 1GM/50ML D5W 50 ML IV ONE (17:15)
[2020-03-25] MEDS ORDERED: LORazepam 2MG/ML-1ML VIAL IV PRN (19:45)
[2020-03-25] MEDS ORDERED: ALBUMIN 25% 50 ML IV ONE (19:45)
[2020-03-25] MEDS ORDERED: ONDANSETRON HCL 4 MG/2 ML VIAL IV PRN (19:45)
[2020-03-25] MEDS ORDERED: MORPHINE SULF INJ 2 MG/ML SYRINGE 1ML IV PRN (19:45)
[2020-03-25] MEDS ORDERED: NITROGLYCERIN 0.4 MG SL TAB SL PRN (19:45)
[2020-03-25] MEDS: SODIUM CHLORIDE 0.9% 1,000 ML IV SCH (19:45)
[2020-03-25] MEDS ORDERED: ACETAMINOPHEN 325 MG RECT SUPP PR PRN (20:30)
[2020-03-25] MEDS ORDERED: DEXTROSE (50%) 50ML SYRG IV PRN (20:30)
[2020-03-25] MEDS: InsuLIN REG 1unit/0.01ml Soln (100units/ml) SC SCH (22:00)
[2020-03-25] MEDS: ENOXAPARIN SOD 30 MG/0.3 ML SYRINGE SC SCH (22:09)
[2020-03-25] MEDS: ACCU-CHEK COMFORT CURVE STRIP VI SCH (22:10)
[2020-03-26 04:51] VITALS: BP 89/61
[2020-03-26] MEDS: SODIUM CHLORIDE 0.9% 1,000 ML IV SCH ×2 (05:45→15:45)
[2020-03-26 06:02] VITALS: BP 89/61
[2020-03-26] MEDS ORDERED: ATOR20TA50 PO (06:56)
[2020-03-26] MEDS ORDERED: FENO145T27 PO (06:56)
[2020-03-26] MEDS ORDERED: CIPR500T4 PO (06:56)
[2020-03-26] MEDS ORDERED: METF-370 PO (06:56)
[2020-03-26] MEDS ORDERED: LEVO50CA3 PO (06:56)
[2020-03-26] MEDS: InsuLIN REG 1unit/0.01ml Soln (100units/ml) SC SCH ×4 (07:00→21:32)
[2020-03-26] MEDS: ACCU-CHEK COMFORT CURVE STRIP VI SCH ×4 (07:02→21:34)
[2020-03-26 07:40] LABS: Basophils # (auto) 0 10 ^3/uL (0-0.2); Basophils % (auto) 0.7 % (0.0-2.0); Eosinophils # (auto) 0.2 10 ^3/uL (0-0.8); Eosinophils % (auto) 5.8 % (0.0-7.0); Hematocrit 26.9 % (36.0-46.0); Hemoglobin 8.9 g/dL (12.2-16.2); Lymphocytes # (auto) 1.4 10 ^3/uL (0.4-5.4); Lymphocytes % (auto) 40.6 % (10.0-50.0); Mean Corpuscular Hemoglobin 29.3 pg (28.0-32.0); Mean Corpuscular Hgb Conc. 33.1 g/dL (32.0-36.0); Mean Corpuscular Volume 88.5 fL (80.0-100.0); Monocytes # (auto) 0.2 10 ^3/uL (0-1.3); Monocytes % (auto) 5.8 % (0.0-12.0); Neutrophils # (auto) 1.6 10 ^3/uL (1.6-8.6); Neutrophils % (auto) 47.1 % (37.0-80.0); Platelet Count (auto) 210 10^3/uL (140-450); Red Blood Cells 3.04 10^6/uL (4.0-5.20); Red Cell Distribution Width 17.5 % (11.8-14.3); White Blood Cell 3.4 10^3/uL (4.4-10.8)
[2020-03-26 08:00] VITALS: BP 93/53
[2020-03-26 08:01] LABS: INR 1.04 (0.9-1.15); Partial Thromboplastin Time 29.9 sec (23.0-31.2)
[2020-03-26 08:14] LABS: Albumin 3.7 g/dL (3.4-5.0); BUN/Creatinine Ratio 17.4; Calcium 8.9 mg/dL (8.5-10.1); Potassium 3.7 mmol/L (3.5-5.1)
[2020-03-26 08:16] LABS: Bilirubin, Total 0.4 mg/dL (0.2-1.0); Total Protein 6.4 g/dL (6.4-8.2)
[2020-03-26] MEDS: ENOXAPARIN SOD 30 MG/0.3 ML SYRINGE SC SCH ×2 (08:38→21:33)
[2020-03-26] MEDS: PANTOPRAZOLE 40 MG/10 ML VIAL INJ IV SCH (08:38)
[2020-03-26] MEDS ORDERED: cefTRIAXone 1GM/50ML D5W 50 ML IV SCH (09:00)
[2020-03-26] MEDS ORDERED: SODIUM CHLORIDE 0.9% 1,000 ML IV ONE (15:15)
[2020-03-26 17:02] VITALS: BP 115/77
[2020-03-26] MEDS ORDERED: diphenhdrAMINE HCL 50 MG/1 ML VL ONE (17:54)
[2020-03-26 22:00] VITALS: BP_SYST 89; BP_SYST 91; BP_DIAS 53; BP_DIAS 63
[2020-03-26] MEDS ORDERED: ERTAPENEM SOD INJ 1 GM in SODIUM CHL 0.9% 50 ML IV ONE (23:30)
[2020-03-27] MEDS: SODIUM CHLORIDE 0.9% 1,000 ML IV SCH ×2 (01:52→12:07)
[2020-03-27] MEDS: diphenhdrAMINE HCL 50 MG/1 ML VL IV PRN ×2 (02:37→20:52)
[2020-03-27 05:00] VITALS: BP 87/59
[2020-03-27] MEDS: InsuLIN REG 1unit/0.01ml Soln (100units/ml) SC SCH ×4 (06:06→21:04)
[2020-03-27] MEDS: ACCU-CHEK COMFORT CURVE STRIP VI SCH ×4 (06:06→21:04)
[2020-03-27 08:00] VITALS: BP 86/62
[2020-03-27] MEDS ORDERED: SODIUM CHLORIDE 0.9% 1,000 ML IV ONE (09:30)
[2020-03-27] MEDS ORDERED: VANCOMYCIN 1GM/250ML 250 ML IV SCH (10:00)
[2020-03-27] MEDS ORDERED: VANCOMYCIN PER PHARMACY 0 MG IV SCH (10:15)
[2020-03-27] MEDS: PANTOPRAZOLE 40 MG/10 ML VIAL INJ IV SCH (10:31)
[2020-03-27] MEDS: ENOXAPARIN SOD 40 MG/0.4 ML SYRINGE SC SCH (10:32)
[2020-03-27] MEDS: VANCOMYCIN 750mg/250ml 250 ML IV SCH ×2 (12:08→23:47)
[2020-03-27 13:00] VITALS: BP 127/77
[2020-03-27] MEDS ORDERED: LEVOTHYROXINE SODIUM 50 MCG TAB PO ONE (13:15)
[2020-03-27 14:58] LABS: Basophils # (auto) 0 10 ^3/uL (0-0.2); Basophils % (auto) 0.9 % (0.0-2.0); Eosinophils # (auto) 0.2 10 ^3/uL (0-0.8); Eosinophils % (auto) 6.9 % (0.0-7.0); Hematocrit 26.5 % (36.0-46.0); Hemoglobin 8.8 g/dL (12.2-16.2); Lymphocytes # (auto) 1.1 10 ^3/uL (0.4-5.4); Lymphocytes % (auto) 37.6 % (10.0-50.0); Mean Corpuscular Hemoglobin 29.6 pg (28.0-32.0); Mean Corpuscular Hgb Conc. 33.4 g/dL (32.0-36.0); Mean Corpuscular Volume 88.6 fL (80.0-100.0); Monocytes # (auto) 0.2 10 ^3/uL (0-1.3); Monocytes % (auto) 5.6 % (0.0-12.0); Neutrophils # (auto) 1.5 10 ^3/uL (1.6-8.6); Platelet Count (auto) 197 10^3/uL (140-450); Red Blood Cells 2.99 10^6/uL (4.0-5.20); Red Cell Distribution Width 16.9 % (11.8-14.3)
[2020-03-27 15:28] LABS: BUN/Creatinine Ratio 11.8; Calcium 7.7 mg/dL (8.5-10.1); Potassium 3.1 mmol/L (3.5-5.1)
[2020-03-27 16:00] VITALS: BP 96/70
[2020-03-27] MEDS: ERTAPENEM SOD INJ 1 GM in SODIUM CHL 0.9% 50 ML IV SCH (21:15)
[2020-03-27 22:00] VITALS: BP 105/71
[2020-03-27] MEDS: ACETAMINOPHEN 325 MG TAB PO PRN (22:33)
[2020-03-28] MEDS: SODIUM CHLORIDE 0.9% 1,000 ML IV SCH ×3 (04:46→17:55)
[2020-03-28] MEDS: diphenhdrAMINE HCL 50 MG/1 ML VL IV PRN ×2 (04:56→20:16)
[2020-03-28 05:00] VITALS: BP 100/68
[2020-03-28] MEDS: LEVOTHYROXINE SODIUM 50 MCG TAB PO SCH (06:21)
[2020-03-28] MEDS: ACCU-CHEK COMFORT CURVE STRIP VI SCH ×4 (06:22→23:01)
[2020-03-28] MEDS: InsuLIN REG 1unit/0.01ml Soln (100units/ml) SC SCH ×4 (06:22→23:01)
[2020-03-28 06:42] LABS: Basophils # (auto) 0 10 ^3/uL (0-0.2); Eosinophils # (auto) 0.2 10 ^3/uL (0-0.8); Hemoglobin 8.3 g/dL (12.2-16.2); Lymphocytes # (auto) 0.9 10 ^3/uL (0.4-5.4); Monocytes # (auto) 0.2 10 ^3/uL (0-1.3); Neutrophils # (auto) 1.4 10 ^3/uL (1.6-8.6); Nucleated Red Blood Cells % 0.1 %
[2020-03-28 07:11] LABS: Basophils % (auto) 0.8 % (0.0-2.0); Eosinophils % (auto) 7.9 % (0.0-7.0); Hematocrit 24.5 % (36.0-46.0); Lymphocytes % (auto) 34.3 % (10.0-50.0); Mean Corpuscular Hemoglobin 29.7 pg (28.0-32.0); Mean Corpuscular Volume 87.3 fL (80.0-100.0); Monocytes % (auto) 6.5 % (0.0-12.0); Neutrophils % (auto) 50.5 % (37.0-80.0); Platelet Count (auto) 200 10^3/uL (140-450); Potassium 3.4 mmol/L (3.5-5.1); Red Blood Cells 2.81 10^6/uL (4.0-5.20); Red Cell Distribution Width 17.2 % (11.8-14.3); White Blood Cell 2.7 10^3/uL (4.4-10.8)
[2020-03-28 07:20] LABS: BUN/Creatinine Ratio 9.8; Calcium 7.7 mg/dL (8.5-10.1)
[2020-03-28 08:00] VITALS: BP 103/70
[2020-03-28 08:30] VITALS: BP 103/70
[2020-03-28] MEDS: PANTOPRAZOLE 40 MG TAB PO SCH (09:39)
[2020-03-28] MEDS: ENOXAPARIN SOD 40 MG/0.4 ML SYRINGE SC SCH (09:39)
[2020-03-28] MEDS: ASCORBIC ACID 1,000 MG TAB PO SCH (09:39)
[2020-03-28] MEDS: ACETAMINOPHEN 325 MG TAB PO PRN ×2 (10:08→17:45)
[2020-03-28] MEDS: VANCOMYCIN 750mg/250ml 250 ML IV SCH (11:27)
[2020-03-28 16:00] VITALS: BP 140/90
[2020-03-28] MEDS ORDERED: POTASSIUM CHL 20MEQ/100ML 100 ML IV ONE (18:00)
[2020-03-28] MEDS ORDERED: FILGRASTIM (TBO) 300 MCG/0.5 ML SYRG SC ONE (20:15)
[2020-03-28 22:00] VITALS: BP 109/76
[2020-03-28] MEDS ORDERED: ACETAMINOPHEN 325 MG TAB PO PRN (22:45)
[2020-03-28] MEDS ORDERED: ACETAMINOPHEN 325 MG RECT SUPP PR PRN (22:45)
[2020-03-28] MEDS: ERTAPENEM SOD INJ 1 GM in SODIUM CHL 0.9% 50 ML IV SCH (22:55)
[2020-03-28] MEDS: HYDROcodone-ACET 5/325MG TAB PO PRN (23:13)
[2020-03-29] MEDS: SODIUM CHLORIDE 0.9% 1,000 ML IV SCH ×2 (04:36→13:45)
[2020-03-29 05:00] VITALS: BP 96/66
[2020-03-29 05:45] LABS: Basophils # (auto) 0 10 ^3/uL (0-0.2); Basophils % (auto) 0.5 % (0.0-2.0); Eosinophils # (auto) 0.3 10 ^3/uL (0-0.8); Eosinophils % (auto) 4.5 % (0.0-7.0); Hematocrit 26.2 % (36.0-46.0); Hemoglobin 8.7 g/dL (12.2-16.2); Lymphocytes # (auto) 1.2 10 ^3/uL (0.4-5.4); Lymphocytes % (auto) 20.6 % (10.0-50.0); Mean Corpuscular Hemoglobin 29.4 pg (28.0-32.0); Mean Corpuscular Hgb Conc. 33.4 g/dL (32.0-36.0); Mean Corpuscular Volume 88.1 fL (80.0-100.0); Monocytes # (auto) 0.3 10 ^3/uL (0-1.3); Monocytes % (auto) 4.8 % (0.0-12.0); Neutrophils # (auto) 4.1 10 ^3/uL (1.6-8.6); Neutrophils % (auto) 69.6 % (37.0-80.0); Platelet Count (auto) 205 10^3/uL (140-450); Red Blood Cells 2.97 10^6/uL (4.0-5.20); Red Cell Distribution Width 16.8 % (11.8-14.3); White Blood Cell 5.9 10^3/uL (4.4-10.8)
[2020-03-29 06:08] LABS: BUN/Creatinine Ratio 9.5; Calcium 7.6 mg/dL (8.5-10.1); Potassium 3.7 mmol/L (3.5-5.1)
[2020-03-29] MEDS: diphenhdrAMINE HCL 50 MG/1 ML VL IV PRN (06:20)
[2020-03-29] MEDS: LEVOTHYROXINE SODIUM 50 MCG TAB PO SCH (06:21)
[2020-03-29] MEDS: HYDROcodone-ACET 5/325MG TAB PO PRN ×2 (06:54→14:24)
[2020-03-29] MEDS: InsuLIN REG 1unit/0.01ml Soln (100units/ml) SC SCH ×3 (07:00→17:00)
[2020-03-29] MEDS: ACCU-CHEK COMFORT CURVE STRIP VI SCH ×3 (07:04→17:00)
[2020-03-29 08:24] VITALS: BP 107/71
[2020-03-29] MEDS: ENOXAPARIN SOD 40 MG/0.4 ML SYRINGE SC SCH (11:16)
[2020-03-29] MEDS: ASCORBIC ACID 1,000 MG TAB PO SCH (11:16)
[2020-03-29] MEDS: PANTOPRAZOLE 40 MG TAB PO SCH (11:16)
[2020-03-29] MEDS: VANCOMYCIN 750mg/250ml 250 ML IV SCH ×2 (11:18)
[2020-03-29] MEDS: ERTAPENEM SOD INJ 1 GM in SODIUM CHL 0.9% 50 ML IV SCH (14:25)
== END 2020-03-29 17:00 | disposition home health service (06) | DRG 720 ==
LOC: EDBD 10:59 → ER 10:59 → TELE 20:44 → TELE-CENTR 03-26 04:25
PROVIDERS: ADMIT Family Medicine; ATTEND Internal Medicine
PROC: 05H933Z Insertion of Infusion Device into Right Brachial Vein, Percutaneous Approach (ICD-10-PCS; principal; 2020-03-29)
PROC: B54MZZA Ultrasonography of Right Upper Extremity Veins, Guidance (ICD-10-PCS; 2020-03-29)
DX: A41.9 Sepsis, unspecified organism (principal); R65.20 Severe sepsis without septic shock; G82.20 Paraplegia, unspecified; N17.9 Acute kidney failure, unspecified; E86.0 Dehydration; D64.9 Anemia, unspecified; N39.0 Urinary tract infection, site not specified; E03.9 Hypothyroidism, unspecified; Z66 Do not resuscitate; E78.5 Hyperlipidemia, unspecified; E78.00 Pure hypercholesterolemia, unspecified; E11.9 Type 2 diabetes mellitus without complications; Z83.3 Family history of diabetes mellitus; Z82.0 Family history of epilepsy and other diseases of the nervous system; Z86.19 Personal history of other infectious and parasitic diseases; Z20.822 Contact with and (suspected) exposure to COVID-19
CPT/HCPCS: 36415; 51702; 71045; 80048; 80053; 80202; 81001; 81025; 82962; 83036; 83605; 84484; 85025; 85610; 85730; 87040; 87081; 87086; 87426; 93005; 96361; 96374; 99291; C9113; G0378; J0696; J1335; J1447; J2405; J3480

== ENCOUNTER 2020-05-05 15:50 | Inpatient (IN) | payer MEDICAID ==
[~2020-05-05] VITALS: Ht 162.6 cm; Wt 55.5 kg
[~2020-05-05 15:50] MED LIST changes: +FENO145T27 PO; -FENO160T8 PO; +LEVO50CA3 PO; -LEVO50TA7 PO; -SULF400T11 PO
[2020-05-05 16:58] LABS: Basophils # (auto) 0 10 ^3/uL (0-0.2); Basophils % (auto) 0.6 % (0.0-2.0); Eosinophils # (auto) 0.2 10 ^3/uL (0-0.8); Eosinophils % (auto) 2.8 % (0.0-7.0); Hematocrit 33.1 % (36.0-46.0); Hemoglobin 11.1 g/dL (12.2-16.2); Lymphocytes # (auto) 1.7 10 ^3/uL (0.4-5.4); Lymphocytes % (auto) 30.8 % (10.0-50.0); Mean Corpuscular Hemoglobin 29.5 pg (28.0-32.0); Mean Corpuscular Hgb Conc. 33.7 g/dL (32.0-36.0); Mean Corpuscular Volume 87.6 fL (80.0-100.0); Monocytes # (auto) 0.4 10 ^3/uL (0-1.3); Monocytes % (auto) 7.4 % (0.0-12.0); Neutrophils # (auto) 3.3 10 ^3/uL (1.6-8.6); Neutrophils % (auto) 58.4 % (37.0-80.0); Platelet Count (auto) 280 10^3/uL (140-450); Red Blood Cells 3.78 10^6/uL (4.0-5.20); Red Cell Distribution Width 16.7 % (11.8-14.3); White Blood Cell 5.6 10^3/uL (4.4-10.8)
[2020-05-05] MEDS ORDERED: MORPHINE SULFATE 4 MG/ML SYR/VIAL IV ONE (17:00)
[2020-05-05] MEDS ORDERED: ONDANSETRON HCL 4 MG/2 ML VIAL IV ONE (17:00)
[2020-05-05 17:19] LABS: Urine Bacteria FEW /hpf (None Seen); Urine Blood 1+ /uL (Negative); Urine WBC 387 /hpf (0 - 5); Urine WBC Clumps PRESENT /hpf (None Seen)
[2020-05-05 17:24] LABS: Alanine Aminotransferase 29 U/L (13-56); Albumin 4.2 g/dL (3.4-5.0); Anion Gap 7 (5-15); Blood Urea Nitrogen 27 mg/dL (7-18); Carbon Dioxide 26 mmol/L (21-32); Chloride 105 mmol/L (98-107); Glucose 140 mg/dL (74-106); Sodium 138 mmol/L (136-145)
[2020-05-05] MEDS ORDERED: KETOROLAC TROMETH 30 MG/ML 1ML VIAL IV ONE (17:30)
[2020-05-05 17:32] LABS: Alkaline Phosphatase 75 U/L (45-117); Aspartate Aminotransferase 21 U/L (15-37); BUN/Creatinine Ratio 32.9; Bilirubin, Total 0.4 mg/dL (0.2-1.0); Calcium 9.6 mg/dL (8.5-10.1); GFR African American 95 mL/min; GFR Non-African American 79 mL/min; Total Protein 7.9 g/dL (6.4-8.2)
[2020-05-05] MEDS ORDERED: cefTRIAXone 1GM/50ML D5W 50 ML IV ONE (18:15)
[2020-05-05] MEDS ORDERED: ONDANSETRON HCL 4 MG/2 ML VIAL IV PRN (21:30)
[2020-05-05] MEDS ORDERED: HYDROcodone-ACET 5/325MG TAB PO PRN (21:30)
[2020-05-05 22:12] VITALS: BP 112/52
[2020-05-06] VITALS (7 sets, daily range): BP systolic 72–115; BP diastolic 49–76
[2020-05-06] MEDS: diphenhdrAMINE HCL 25 MG CAP PO PRN ×2 (03:50→23:51)
[2020-05-06] MEDS: levoFLOXacin 500MG 100 ML IV SCH (10:00)
[2020-05-06] MEDS ORDERED: MIDODRINE HCL 10 MG TAB PO SCH (14:00)
[2020-05-06] MEDS: ALBUMIN 25% 100 ML IV SCH ×2 (15:42→21:21)
[2020-05-06] MEDS: ACETAMINOPHEN 325 MG TAB PO PRN (21:38)
[2020-05-07 05:00] VITALS: BP 94/67
[2020-05-07] MEDS: ALBUMIN 25% 100 ML IV SCH (05:53)
[2020-05-07] MEDS ORDERED: IOPAMIDOL 76 % (ISOVUE-370) 100ML BTL IV ONE (07:44)
[2020-05-07 08:41] VITALS: BP 122/71
[2020-05-07] MEDS: levoFLOXacin 500MG 100 ML IV SCH (09:04)
[2020-05-07] MEDS: ACETAMINOPHEN 325 MG TAB PO PRN (13:26)
[2020-05-07 13:30] VITALS: BP 115/76
[2020-05-07] MEDS ORDERED: CIPR-173 PO (14:11)
[2020-05-07] MEDS ORDERED: MID10T PO (14:11)
[2020-05-07] MEDS ORDERED: PROBCAP9 PO (14:11)
== END 2020-05-07 17:15 | disposition home or self-care (01) | DRG 466 ==
LOC: EDBD 15:50 → ER 15:50 → CENTRAL 21:34
PROVIDERS: ADMIT Internal Medicine; ATTEND Internal Medicine
DX: T83.511A Infection and inflammatory reaction due to indwelling urethral catheter, initial encounter (principal); N30.01 Acute cystitis with hematuria; G82.20 Paraplegia, unspecified; J43.9 Emphysema, unspecified; I95.9 Hypotension, unspecified; E03.9 Hypothyroidism, unspecified; E11.9 Type 2 diabetes mellitus without complications; E78.5 Hyperlipidemia, unspecified; F41.9 Anxiety disorder, unspecified; I10 Essential (primary) hypertension; Z16.21 Resistance to vancomycin; Z20.822 Contact with and (suspected) exposure to COVID-19; Z91.048 Other nonmedicinal substance allergy status; Z74.01 Bed confinement status; Z83.3 Family history of diabetes mellitus; Z87.440 Personal history of urinary (tract) infections; Z82.49 Family history of ischemic heart disease and other diseases of the circulatory system; Z81.8 Family history of other mental and behavioral disorders; Z96.0 Presence of urogenital implants
CPT/HCPCS: 36415; 71045; 71275; 80053; 81001; 83605; 83880; 84484; 85025; 85379; 87040; 87086; 87088; 87186; 87426; 93005; 93306; 96365; 96375; G0378; J0696; J1885; J1956; J2405; P9047

== ENCOUNTER 2020-07-01 09:59 | Emergency (ER) | payer MEDICAID ==
[~2020-07-01] VITALS: Ht 162.6 cm; Wt 72.6 kg
[~2020-07-01 09:59] MED LIST changes: +CIPR-173 PO; +MID10T PO; +PROBCAP9 PO
[2020-07-01] MEDS ORDERED: MORPHINE SULFATE 4 MG/ML SYR/VIAL IV ONE (10:15)
[2020-07-01] MEDS ORDERED: SODIUM CHLORIDE 0.9% 1,000 ML IV ONE (10:15)
[2020-07-01] MEDS ORDERED: ONDANSETRON HCL 4 MG/2 ML VIAL IV ONE (10:15)
[2020-07-01] MEDS ORDERED: cefTRIAXone 1GM/50ML D5W 50 ML IV ONE (11:15)
[2020-07-01 12:53] LABS: Urine Bacteria MOD /hpf (None Seen); Urine Blood Negative /uL (Negative); Urine Specific Gravity 1.012 (1.001-1.035); Urine WBC 29 /hpf (0 - 5)
[2020-07-01] MEDS ORDERED: KETOROLAC TROMETH 30 MG/ML 1ML VIAL IV ONE (15:30)
[2020-07-01 18:31] VITALS: BP 105/69
== END 2020-07-01 18:54 | disposition home or self-care (01) ==
LOC: EDBD 09:59 → ER 09:59
DX: R51.9 Headache, unspecified (principal); G82.50 Quadriplegia, unspecified; R07.9 Chest pain, unspecified; E11.9 Type 2 diabetes mellitus without complications; E78.5 Hyperlipidemia, unspecified
CPT/HCPCS: 70450; 71045; 81001; 82962; 87086; 96361; 96365; 96375; 99285; J0696; J1885; J2270; J2405; J7030

== ENCOUNTER 2020-12-18 18:23 | Emergency (ER) | payer MEDICAID ==
[~2020-12-18] VITALS: Ht 167.6 cm; Wt 79.4 kg
[2020-12-18] MEDS ORDERED: ACETAMINOPHEN 325 MG TAB PO ONE (18:45)
[2020-12-18] MEDS ORDERED: diphenhdrAMINE HCL 50 MG/1 ML VL IV ONE (18:45)
[2020-12-18] MEDS ORDERED: SODIUM CHLORIDE 0.9% 1,000 ML IV ONE (18:45)
[2020-12-18] MEDS ORDERED: KETOROLAC TROMETH 30 MG/ML 1ML VIAL IV ONE (18:45)
[2020-12-18] MEDS ORDERED: METOCLOPRAMIDE HCL 5MG/ml INJ 2ml VIAL IV ONE (18:45)
[2020-12-18 19:50] LABS: Basophils # (auto) 0 10 ^3/uL (0-0.2); Basophils % (auto) 0.5 % (0.0-2.0); Eosinophils # (auto) 0.1 10 ^3/uL (0-0.8); Eosinophils % (auto) 2.4 % (0.0-7.0); Hematocrit 31.7 % (36.0-46.0); Hemoglobin 10.3 g/dL (12.2-16.2); Lymphocytes # (auto) 1.2 10 ^3/uL (0.4-5.4); Lymphocytes % (auto) 20.5 % (10.0-50.0); Mean Corpuscular Hemoglobin 27.4 pg (28.0-32.0); Mean Corpuscular Hgb Conc. 32.4 g/dL (32.0-36.0); Mean Corpuscular Volume 84.6 fL (80.0-100.0); Monocytes # (auto) 0.3 10 ^3/uL (0-1.3); Monocytes % (auto) 5.5 % (0.0-12.0); Neutrophils % (auto) 71.1 % (37.0-80.0); Nucleated Red Blood Cells % 0.1 %; Red Blood Cells 3.75 10^6/uL (4.0-5.20); Red Cell Distribution Width 17.6 % (11.8-14.3); White Blood Cell 5.6 10^3/uL (4.4-10.8)
[2020-12-18 20:13] LABS: Albumin 3.4 g/dL (3.4-5.0); Magnesium 1.8 mg/dL (1.6-2.6); Potassium 3.2 mmol/L (3.5-5.1)
[2020-12-18 20:14] LABS: BUN/Creatinine Ratio 18.8
[2020-12-18 20:17] LABS: Bilirubin, Total 0.5 mg/dL (0.2-1.0); Total Protein 7.8 g/dL (6.4-8.2)
[2020-12-18 22:50] LABS: Urine Bacteria MOD /hpf (None Seen); Urine Blood Negative /uL (Negative); Urine Mucus FEW (None Seen); Urine Specific Gravity 1.012 (1.001-1.035); Urine WBC 16 /hpf (0 - 5)
[2020-12-19] MEDS ORDERED: cefTRIAXone 1GM/50ML D5W 50 ML IV ONE (01:00)
[2020-12-19] MEDS ORDERED: CEFD300C2 PO (06:21)
[2020-12-19] MEDS ORDERED: METOCLOPRAMIDE HCL 5MG/ml INJ 2ml VIAL IV ONE (06:45)
[2020-12-19] MEDS ORDERED: KETOROLAC TROMETH 30 MG/ML 1ML VIAL IV ONE (06:45)
[2020-12-19] MEDS ORDERED: ACETAMINOPHEN 325 MG TAB PO ONE (16:30)
[2020-12-19 18:36] VITALS: BP 112/77
== END 2020-12-19 18:37 | disposition hospice, home (50) ==
LOC: EDBD 18:23 → EDUNIT# 18:23 → ER 18:26
DX: R51.9 Headache, unspecified (principal); E11.9 Type 2 diabetes mellitus without complications; I10 Essential (primary) hypertension; E78.5 Hyperlipidemia, unspecified; Z79.82 Long term (current) use of aspirin; Z79.899 Other long term (current) drug therapy; Z87.440 Personal history of urinary (tract) infections
CPT/HCPCS: 36415; 80053; 81001; 83605; 83735; 85025; 87086; 96361; 96365; 96375; 96376; 99285; J0696; J1200; J1885; J2765; J7030

== ENCOUNTER 2024-08-21 04:18 | Inpatient (IN) | payer MEDICAID ==
[~2024-08-21] VITALS: Ht 160 cm; Wt 65.0 kg
[~2024-08-21 04:18] MED LIST changes: +CEFD300C2 PO; +OMEG-20 PO; -OMEG100078 PO
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
[2024-08-21] MEDS: SODIUM CHLORIDE 0.9% 2,000 ML IV ONE (05:12)
[2024-08-21] MEDS: ONDANSETRON HCL 4 MG/2 ML VIAL IV ONE (05:12)
[2024-08-21] MEDS: MORPHINE SULFATE 4 MG/ML SYR/VIAL IV ONE (05:12)
[2024-08-21] MEDS: cefTRIAXone 1GM/50ML D5W 50 ML IV ONE (05:13)
[2024-08-21 05:30] VITALS: PULSE 92; RESP 22; O2SAT 95
[2024-08-21 05:54] LABS: Hematocrit 31.2 % (36.0-46.0); Hemoglobin 10.0 g/dL (12.2-16.2); Mean Corpuscular Hemoglobin 26.2 pg (28.0-32.0); Mean Corpuscular Volume 81.7 fL (80.0-100.0); Nucleated Red Blood Cells % 0.0 %
[2024-08-21] MEDS ORDERED: VANCOMYCIN PER PHARMACY 0 MG IV SCH (06:00)
[2024-08-21 06:07] LABS: Alanine Aminotransferase 12 U/L (7-40); Albumin 4.3 g/dL (3.2-4.8); Alkaline Phosphatase 57 U/L (46-116); Anion Gap 14 (5-15); BUN/Creatinine Ratio 32.4 (10.0-20.0); Carbon Dioxide 21 mmol/L (20-31); Chloride 103 mmol/L (98-107); Sodium 138 mmol/L (136-145); Total Protein 6.5 g/dL (5.7-8.2)
[2024-08-21 06:08] LABS: Bilirubin, Total 1.0 mg/dL (0.2-1.0)
--- NOTE | 2024-08-21 06:14 | DVH ---
EXAM: CT Abdomen and Pelvis Without Intravenous Contrast CLINICAL INDICATION: Pain TECHNIQUE: Axial computed tomography images of the abdomen and pelvis without intravenous contrast. This CT exam was performed using one or more of the following dose reduction techniques: automated exposure control, adjustment of the mA and/or kV according to patient size, and/or use of iterative r econstruction technique. COMPARISON: No relevant prior studies available. FINDINGS: LUNG BASES: Unremarkable. No mass. No consolidation. ABDOMEN: LIVER: Unremarkable. GALLBLADDER AND BILE DUCTS: Unremarkable. No calcified stones. No ductal dilation. PANCREAS: Unremarkable. No ductal dilation. SPLEEN: Unremarkable. No splenomegaly. ADRENALS: Unremarkable. No mass. KIDNEYS AND URETERS: Nonspecific fat stranding surrounding the right perinephric region with small f luid collection in the right paracolic gutter. Pyelonephritis cannot excluded. Clinical correlation is recommended. No obstructing stones. STOMACH AND BOWEL: Fecal retention in the colon consistent with constipation. No obstruction. No m ucosal thickening. PELVIS: APPENDIX: Normal appendix. BLADDER: Unremarkable. No stones. REPRODUCTIVE: Unremarkable as visualized. ABDOMEN and PELVIS: INTRAPERITONEAL SPACE: Unremarkable. No free air. No significant fluid collection. BONES/JOINTS: No acute fracture. No dislocation. SOFT TISSUES: Unremarkable. VASCULATURE: Unremarkable. No abdominal aortic aneurysm. LYMPH NODES: Unremarkable. No enlarged lymph nodes. IMPRESSION: 1. Normal appendix. 2. Nonspecific fat stranding surrounding the right perinephric region with small fluid collection in the right paracolic gutter. Pyelonephritis cannot excluded. Clinical correlation is recommended. 3. Fecal retention in the colon consistent with constipation.
[2024-08-21 06:28] LABS: Blood Urea Nitrogen 24 mg/dL (9-23); Calcium 8.0 mg/dL (8.7-10.4); Glucose 167 mg/dL (74-106); Potassium 2.9 mmol/L (3.5-5.1)
[2024-08-21 06:31] LABS: Urine Protein, UAD TRACE (Negative)
[2024-08-21] MEDS: VANCOMYCIN 1GM/200ML PM 200 ML IV ONE (06:36)
[2024-08-21 07:30] VITALS: PULSE 90; RESP 20; O2SAT 94
[2024-08-21] MEDS: SODIUM CHLORIDE 0.9% 1,000 ML IV ONE (07:30)
[2024-08-21] MEDS ORDERED: MORPHINE SULFATE INJ 2 MG/ml SYRG IV PRN ×2 (08:15)
[2024-08-21] MEDS ORDERED: NITROGLYCERIN 0.4 MG SL TAB SL PRN (08:15)
--- NOTE | 2024-08-21 08:16 | DVHHP2 ---
Admitting Diagnosis: Abdominal pain History of Present Illness Patient is a 53 y/o female who is complaining of abdominal pain. Patient states that she has a Hx of UTI and an indwelling catheter. Patient states that she has been experiencing RLQ pain and suprapubic pain radiating to her back. Patient is bed bound and is a quadriplegic. Patient states she has N/V. Patient denies any fever. While in the emergency department the patient was evaluated by the provider, Labs, vital signs, and imagining monitored. Patient will be admitted for further evaluation and treatment. I discussed admission with the patient/family and is in agreement to treatment plan. Patient Family History: Alzheimer's disease G8 FATHER (UNKNOWN) Cardiovascular disease G8 FATHER Cerebrovascular accident (CVA) G8 FATHER Chronic obstructive pulmonary disease G8 FATHER Diabetes mellitus G8 MOTHER G8 BROTHER FH: CHF (congestive heart failure) G8 FATHER FH: heart attack G8 FATHER, Onset:50's - 60 Hypercholesterolemia G8 MOTHER, Onset:30's - 40 Hypertension G8 MOTHER, Onset:50's - 60 Hypotension Allergies: Uncoded Allergies: Adhesive Tape/Gel (Allergy, Mild, 03/26/20) RASH Home Meds Active Scripts Cefdinir (Cefdinir) 300 Mg Cap, 1 CAP PO BID, #14 CAP Prov:HILLARY WATSON MD 12/19/20 Midodrine HCl (Midodrine HCl) 10 Mg Tab, 10 MG PO DAILY, #14 TAB Prov:RAY RAO MD 05/07/20 Probiotic Product (PROBIOTIC COMPLEX/ACIDOPH) Acidophi Cap, 1 CAP PO DAILY, #14 CAP Prov:RAY RAO MD 05/07/20 Ciprofloxacin Hcl (Cipro) 500 Mg Tab, 1 TAB PO BID, #14 TAB Prov:RAY RAO MD 05/07/20 Reported Medications Levothyroxine Sodium (Levothyroxine Sodium) 50 Mcg Cap, 50 MCG PO DAILY, CAP 03/26/20 Fenofibrate (FENOFIBRATE) 145 Mg Tab, 160 MG PO DAILY, TAB 03/26/20 Atorvastatin Calcium (ATORVASTATIN CALCIUM) 20 Mg Tab, 1 TAB PO DAILY, #30 TAB 5 Refills 03/26/20 Ascorbic Acid (Vitamin C) 1,000 Mg Tab, 1000 MG PO DAILY, TAB 03/01/20 Fucxlis-Fmvtjibrsitgr-Jsynhwff (Headache Relief/Extra Str 250-250-65 mg) 1 Tab Tab, 1 TAB PO PRN, TAB 09/07/19 Bismuth Subsalicylate (PEPTO-BISMOL TO-GO) Unknown Strength Chw, PO PRN, TAB.CHEW 09/07/19 [place]-3 Fatty Acids (FISH OIL) 1,000 Mg Cap, 1000 MG PO DAILY, CAP 09/07/19 Metformin HCl (Metformin Hydrochloride) 1,000 Mg Tab, 1000 MG PO BID, TAB 09/07/19 Hiral (Morinda Citrifolia) (Hiral) 125 Mg Cap, 400 MG PO PRN, CAP 03/17/19 Linseed Oil (Flax Seed Oil) 1,000 Mg Cap, 1000 MG PO DAILY, CAP 03/17/19 Current Medications Current Medications Medications (Trade) Dose Ordered Sig/Mechelle Route PRN Reason Start Time Stop Time Status Last Admin Vancomycin HCl 0 ml @ 0 mls/hr UD IV 08/21/24 06:00 Sodium Chloride 1,000 ml @ 120 mls/hr Q8H20M IV 08/21/24 08:15 08/21/24 09:52 Acetaminophen/ Hydrocodone Bitart ([place] 5/325MG Tab) 1 tab Q4HP PRN PO MODERATE PAIN (4-6 PAIN SCALE) 08/21/24 08:15 Ondansetron HCl (Zofran) 4 mg Q4HP PRN IV NAUSEA / VOMITING 08/21/24 08:15 08/21/24 09:37 Docusate Sodium (Colace Capsule) 100 mg BIDPRN PRN PO FOR CONSTIPATION 08/21/24 08:15 Acetaminophen (Tylenol Tablet) 650 mg Q6HP PRN PO PAIN SCALE 1-3 OR TEMP>100.4 08/21/24 08:15 08/21/24 11:38 Morphine Sulfate 2 mg Q4HPRN PRN IV SEVERE PAIN (7-10 PAIN SCALE) 08/21/24 08:15 Enoxaparin Sodium (Lovenox) 40 mg DAILY SC 08/21/24 10:00 08/21/24 11:09 Piperacillin Sod/ Tazobactam Sod 100 ml @ 100 mls/hr Q8HR IV 08/21/24 08:15 08/21/24 14:04 Nitroglycerin (Ntrostat Sublingual) 0.4 mg Q5MINP PRN SL FOR CHEST PAIN 08/21/24 08:15 Morphine Sulfate 2 mg Q30M PRN IV FOR CHEST PAIN 08/21/24 08:15 Midodrine (Proamatine Tablet) 10 mg DAILY PO 08/21/24 10:00 08/21/24 15:41 DC Levothyroxine Sodium (Synthroid Tablet) 50 mcg QAM PO 08/21/24 08:57 08/21/24 09:37 Diagnostic Test (Pha) (Accu-Chek Comfort Curve T) 1 strip ACHS 08/21/24 11:30 08/21/24 17:26 Insulin Human Regular (InsuLIN R) HS SC 08/21/24 22:00 Insulin Human Regular (InsuLIN R) AC SC 08/21/24 11:30 08/21/24 12:03 Dextrose 50 ml UD PRN IV Blood Sugar LESS THAN 60 08/21/24 08:30 Famotidine (Pepcid Tablet) 40 mg DAILY PO 08/22/24 10:00 Vancomycin HCl 250 ml @ 125 mls/hr Q12H IV 08/21/24 18:30 08/21/24 18:47 Midodrine (Proamatine Tablet) 10 mg TID@0600,1200,1800 PO 08/21/24 18:00 08/21/24 18:13 Ibuprofen (Motrin Tablet) 800 mg Q8HP PRN PO TEMP GREATER THAN 100 08/21/24 15:45 08/21/24 16:28 Review of Systems Constitutional: denies chills, denies fever, denies malaise Eyes: denies eye pain, denies vision change ENT: denies ear pain, denies headache, denies nasal congestion, denies painful swallowing, denies voice change Cardiovascular: denies chest pain, denies edema, denies orthopnea, denies palpitations, denies paroxysmal nocturnal dyspnea Respiratory: denies cough, denies shortness of breath Gastrointestinal: denies constipation, denies diarrhea, denies nausea, denies vomiting Genitourinary: denies dysuria, denies frequent urination, denies urethral discharge Musculoskeletal: denies back pain, denies joint pain, denies muscle pain Skin: denies bruising, denies itching, denies rash Neurological: denies focal weakness, denies headache, denies sensory changes Psychiatric: denies anxiety, denies depression Endocrine: denies polydipsia, denies polyuria Hematologic/Lymphatic: denies easy bleeding, denies easy bruising, denies enlarged lymph nodes Allergic/Immunologic: denies allergy, denies hives Vital Signs Vital Signs Date Time Temp Pulse Resp B/P (MAP) Pulse Ox O2 Delivery O2 Flow Rate FiO2 08/21/24 18:00 99.6 117 18 111/32 (58) 95 99.6 08/21/24 07:30 Room Air* 0 21 Physical Exam General Appearance: alert, no distress, Quadriplegic HEENT: EOMI, PERRLA, normal external inspect of ears, no icterus, no nasal drainage Neck: no carotid bruit, no jugular venous distention (JVD), no lymphadenopathy Chest: normal thorax Respiratory: clear to auscultation, normal air movement Cardiovascular: regular rate and rhythm, no diastolic murmur, no jugular venous distention (JVD), no rub, no systolic murmur Abdominal: soft, no hepatomegaly, no mass, no splenomegaly Genitourinary: grossly normal external Musculoskeletal: no joint tenderness, no swelling Extremities: normal pulses, no calf tenderness, no clubbing, no cyanosis, no edema Skin: no bruising, no jaundice, no rash Neurological: alert, No focal deficit Results Labs Test 08/21/24 17:17 08/21/24 05:29 Range/Units POC Glucose 118 H 70-106 mg/dl White Blood Count 8.4 4.4-10.8 10^3/uL Red Blood Count 3.82 L 4.0-5.20 10^6/uL Hemoglobin 10.0 L 12.2-16.2 g/dL Hematocrit 31.2 L 36.0-46.0 % Mean Corpuscular Volume 81.7 80.0-100.0 fL Mean Corpuscular Hemoglobin 26.2 L 28.0-32.0 pg Mean Corpuscular Hemoglobin Concent 32.1 32.0-36.0 g/dL Red Cell Distribution Width 18.3 H 11.8-14.3 % Platelet Count 223 140-450 10^3/uL Mean Platelet Volume 7.9 6.9-10.8 fL Neutrophils (%) (Auto) 87.1 H 37.0-80.0 % Lymphocytes (%) (Auto) 5.7 L 10.0-50.0 % Monocytes (%) (Auto) 6.3 0.0-12.0 % Eosinophils (%) (Auto) 0.3 0.0-7.0 % Basophils (%) (Auto) 0.6 0.0-2.0 % Neutrophils # (Auto) 7.4 1.6-8.6 10 ^3/uL Lymphocytes # (Auto) 0.5 0.4-5.4 10 ^3/uL Monocytes # (Auto) 0.5 0-1.3 10 ^3/uL Eosinophils # (Auto) 0 0-0.8 10 ^3/uL Basophils # (Auto) 0 0-0.2 10 ^3/uL Nucleated Red Blood Cells 0.0 % Urine Color Yellow Yellow Urine Clarity Turbid H Clear Urine pH 5.0 5.0-9.0 Urine Specific [place] 1.015 1.001-1.035 Urine Protein Trace H Negative Urine Ketones Negative Negative Urine Blood Negative Negative /uL Urine Nitrite Negative Negative Urine Bilirubin Negative Negative Urine Urobilinogen Normal Negative mg/dL Urine Leukocyte Esterase 3+ Negative /uL Urine RBC 4 0 - 4 /hpf Urine Microscopic WBC 82 H 0-5 /HPF Urine Squamous Epithelial Cells Few <5 /hpf Urine Bacteria Many H None Seen /hpf Urine Mucus Few None Seen Urine Glucose Normal Normal mg/dL Urine Test Negative Negative Sodium Level 138 136-145 mmol/L Potassium Level 2.9 L 3.5-5.1 mmol/L Chloride Level 103 98-107 mmol/L Carbon Dioxide Level 21 20-31 mmol/L Anion Gap 14 5-15 Blood Urea Nitrogen 24 H 9-23 mg/dL Creatinine 0.74 0.550-1.02 mg/dL Glomerular Filtration Rate Calc 97 >90 mL/min BUN/Creatinine Ratio 32.4 H 10.0-20.0 Serum Glucose 167 H 74-106 mg/dL Hemoglobin A1c 6.1 H <5.7 % A1C Lactic Acid Level 1.6 0.4-2.0 mmol/L Calcium Level 8.0 L 8.7-10.4 mg/dL Total Bilirubin 1.0 0.2-1.0 mg/dL Aspartate Amino Transferase (AST) 31 <34 U/L Alanine Aminotransferase (ALT) 12 7-40 U/L Alkaline Phosphatase 57 46-116 U/L Total Protein 6.5 5.7-8.2 g/dL Albumin 4.3 3.2-4.8 g/dL Triglycerides Level 484 H < 150 mg/dL Cholesterol Level 176 < 200 mg/dL LDL Cholesterol < 100 mg/dL HDL Cholesterol 30 L 40-59 mg/dL Thyroid Stimulating Hormone (TSH) 2.34 0.55-4.78 uIU/mL Admitting Diagnosis: 1. Quadriplegic Monitoring 2. Bedbound Monitoring, Turn Q2Hrs 3. Complicated UTI r/t indwelling IV ABX, monitoring 4. DMII with hyperglycemia Insulin SS 5. Hypothyroid Obtain TSH 6. Hypokalemia Replace electrolytes Plan discussed with: Patient, Other BIJU BRANNON NP Aug 21, 2024 08:16
[2024-08-21] MEDS ORDERED: DEXTROSE (50%) 50ML SYRG IV PRN (08:30)
[2024-08-21] MEDS: ONDANSETRON HCL 4 MG/2 ML VIAL IV PRN (09:37)
[2024-08-21] MEDS: LEVOTHYROXINE SODIUM 50 MCG TAB PO SCH (09:37)
[2024-08-21] MEDS: PIPERACILLIN-TAZOB 3.375GM 100 ML IV SCH (09:44)
[2024-08-21] MEDS: SODIUM CHLORIDE 0.9% 1,000 ML IV SCH (09:52)
[2024-08-21] MEDS ORDERED: MIDODRINE HCL 10 MG TAB PO SCH (10:00)
[2024-08-21] MEDS: ENOXAPARIN SOD 40 MG/0.4 ML SYRINGE SC SCH (11:09)
[2024-08-21] MEDS: POTASSIUM CHL 20 Meq TABLET PO ONE (11:09)
[2024-08-21 11:14] LABS: Cholesterol 176 mg/dL (< 200)
[2024-08-21 11:19] LABS: HDL Cholesterol 30 mg/dL (40-59); Triglycerides 484 mg/dL (< 150)
[2024-08-21] MEDS: ACETAMINOPHEN 325 MG TAB PO PRN (11:38)
[2024-08-21] MEDS: SODIUM CHLORIDE 0.9% 500 ML IV ONE (11:45)
[2024-08-21] MEDS: ACCU-CHEK COMFORT CURVE STRIP VI SCH (12:00)
[2024-08-21] MEDS: InsuLIN REG 1unit/0.01ml Soln (100units/ml) SC SCH ×2 (12:03→23:04)
[2024-08-21] MEDS: MIDODRINE HCL 10 MG TAB PO ONE (16:10)
[2024-08-21] MEDS: IBUPROFEN 800 MG TAB PO PRN (16:28)
[2024-08-21] MEDS: MIDODRINE HCL 10 MG TAB PO SCH (18:13)
[2024-08-21] MEDS: VANCOMYCIN 1GM/250ML KIT 250 ML IV SCH (18:47)
[2024-08-21] MEDS: DOCUSATE SOD 100 MG CAP PO PRN (23:04)
[2024-08-22] VITALS (9 sets, daily range): BP systolic 110; BP diastolic 76; PULSE 78–102; RESP 14–36; TEMP 99; O2SAT 96–100
[2024-08-22] MEDS: HYDROcodone-ACET 5/325MG TAB PO PRN (03:06)
[2024-08-22 05:47] LABS: Hematocrit 23.1 % (36.0-46.0); Hemoglobin 7.7 g/dL (12.2-16.2); Mean Corpuscular Hemoglobin 27.3 pg (28.0-32.0); Mean Corpuscular Volume 81.6 fL (80.0-100.0); Nucleated Red Blood Cells % 0.0 %
[2024-08-22 06:04] LABS: Albumin 3.2 g/dL (3.2-4.8); Alkaline Phosphatase 46 U/L (46-116); Anion Gap 12 (5-15); BUN/Creatinine Ratio 29.5 (10.0-20.0); Bilirubin, Total 0.4 mg/dL (0.2-1.0); Blood Urea Nitrogen 13 mg/dL (9-23); Sodium 142 mmol/L (136-145)
[2024-08-22 06:08] LABS: Carbon Dioxide 17 mmol/L (20-31); Chloride 113 mmol/L (98-107); Glucose 159 mg/dL (74-106); Potassium 3.4 mmol/L (3.5-5.1)
[2024-08-22 06:09] LABS: Alanine Aminotransferase < 9 U/L (7-40); Calcium 7.3 mg/dL (8.7-10.4); Total Protein 4.9 g/dL (5.7-8.2)
[2024-08-22] MEDS: FAMOTIDINE 20 MG TAB PO SCH (11:27)
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
[2024-08-22] MEDS ORDERED: ALPRAZolam 0.5 MG TAB PO PRN (12:15)
[2024-08-22] MEDS: ALBUTEROL SULF 2.5 MG/0.5ML(0.5%) NEB SOLN NEB SCH (13:12)
[2024-08-22] MEDS: IPRATROPIUM BROM 0.5 MG/2.5ML INH SOL NEB SCH (13:12)
[2024-08-22] MEDS: SODIUM CHLORIDE 0.9% 1,000 ML IV SCH (13:34)
[2024-08-22] MEDS: POTASSIUM CHL 20 Meq TABLET PO ONE (13:53)
[2024-08-22] MEDS: ALBUTEROL SULF 2.5 MG/0.5ML(0.5%) NEB SOLN NEB PRN (23:18)
[2024-08-23] VITALS (18 sets, daily range): BP systolic 104–128; BP diastolic 67–85; PULSE 80–117; RESP 14–20; TEMP 97.4–99.4; O2SAT 94–100
--- NOTE | 2024-08-23 00:54 | DVHSR ---
APPROVED REPORT EXAM: Two-dimensional and M-mode echocardiogram with Doppler and color Doppler. Blood Pressure: 96/57 mmHg INDICATION R/O endo RISK FACTORS Height: 5'5'', Weight: 130 DIMENSIONS LVDd4.4 (3.8-5.7cm)LA (2D) (1.9-4.0cm)Aortic Root2.9 (2.0-3.7cm) LVDs2.9 (2.5-4.0cm)LA (MM) (1.9-4.0cm)Aortic Cusp Exc1.7 (1.5-2.0cm) EF (%) 65.0 (55-70%)Rt. Atrium (1.9-4.0cm)Asc. Aorta cm IVSd1.0 (0.7-1.1cm)RV (D) (1.8-2.4cm) PWd0.8 (0.7-1.1cm) Mitral Valve MitralMitral Stenosis E/A ratio0.02D MVAcm2 Aortic Valve Aortic ValveAortic Stenosis LVOT Diameter1.9 (1.8-2.4cm)Doppler AVAcm2 Pulmonic Valve V21.16m/s Other Information Technically limited study due to body habitus, patient lying flat. Conclusion LV EF IS 65% AND IS NORMAL NORMAL RV FUNCTION AND SIZE NORMAL VALVES VERY MILD ANTERIOR PERICARDIAL EFFUSION
[2024-08-23] MEDS ORDERED: ACET-1881 PO (02:33)
[2024-08-23] MEDS ORDERED: [UNRECOGNIZED DRUG - CODE] PO (02:33)
[2024-08-23] MEDS ORDERED: ALBU2TAB11 IN (02:33)
[2024-08-23] MEDS ORDERED: VITA80009 PO (02:33)
[2024-08-23] MEDS ORDERED: ONDA-155 PO (02:46)
[2024-08-23] MEDS ORDERED: FERR325T20 PO (02:46)
[2024-08-23] MEDS ORDERED: PANT40TA2 PO (02:46)
[2024-08-23] MEDS: VANCOMYCIN 750MG KIT 100 ML IV SCH ×2 (05:22→09:28)
[2024-08-23 06:35] LABS: Hematocrit 22.8 % (36.0-46.0); Hemoglobin 7.7 g/dL (12.2-16.2); Mean Corpuscular Hemoglobin 27.5 pg (28.0-32.0); Mean Corpuscular Volume 81.7 fL (80.0-100.0); Nucleated Red Blood Cells % 0.0 %
[2024-08-23 06:44] LABS: Anion Gap 10 (5-15); Potassium 3.8 mmol/L (3.5-5.1); Sodium 140 mmol/L (136-145)
[2024-08-23 06:47] LABS: Calcium 7.9 mg/dL (8.7-10.4); Carbon Dioxide 17 mmol/L (20-31); Chloride 113 mmol/L (98-107)
[2024-08-23 06:50] LABS: BUN/Creatinine Ratio 23.1 (10.0-20.0)
[2024-08-23 06:51] LABS: Magnesium 1.8 mg/dL (1.6-2.6)
[2024-08-23 06:53] LABS: Blood Urea Nitrogen 9 mg/dL (9-23); Glucose 153 mg/dL (74-106)
[2024-08-23 07:04] LABS: Iron 7.0 ug/dL (50-170); Total Iron Binding Capacity 235.0 ug/dL (250-425)
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
[2024-08-23] MEDS: SODIUM PHOSPHATES 24 MEQ in SODIUM CHL 0.9% 100 ML IV ONE (17:34)
[2024-08-23] MEDS: CALCIUM GLUC 1,000mg/50ml-NS 50 ML IV ONE (17:34)
[2024-08-23] MEDS: VANCOMYCIN 750mg/150ml 150 ML IV SCH (21:43)
[2024-08-24] VITALS (18 sets, daily range): BP systolic 99–156; BP diastolic 64–98; PULSE 75–107; RESP 14–19; TEMP 97.5–98.1; O2SAT 94–100
[2024-08-24 06:14] LABS: Anion Gap 12 (5-15); Sodium 142 mmol/L (136-145)
[2024-08-24 06:28] LABS: BUN/Creatinine Ratio 12.5 (10.0-20.0); Blood Urea Nitrogen < 5 mg/dL (9-23); Calcium 8.4 mg/dL (8.7-10.4); Carbon Dioxide 19 mmol/L (20-31); Chloride 111 mmol/L (98-107); Glucose 141 mg/dL (74-106); Potassium 3.2 mmol/L (3.5-5.1)
--- NOTE | 2024-08-24 10:20 | DVHPN2 ---
Progress Note - Dictate Date Seen: Aug 24, 2024 Medical Necessity Reason Pt with a Central, PICC or Fol: No vital signs Vital Sign Date Time Temp Pulse Resp B/P (MAP) Pulse Ox O2 Delivery O2 Flow Rate FiO2 08/24/24 08:39 97.5 100 16 123/83 (96) 94 97.5 08/24/24 08:00 Nasal Cannula* 2 28 Total Intake and Output 08/23/24 08/23/24 08/24/24 15:00 23:00 07:00 Intake Total 300 ml 748 ml 600 ml Output Total 1200 ml 1200 ml Balance 300 ml -452 ml -600 ml medications Current Medications Medications Dose Ordered Sig/Mechelle Route Start Time Stop Time Status Last Admin Dose Admin Vancomycin HCl 0 ml @ 0 mls/hr UD IV 08/21/24 06:00 Acetaminophen/ Hydrocodone Bitart 1 tab Q4HP PRN PO 08/21/24 08:15 08/24/24 02:21 1 TAB Ondansetron HCl 4 mg Q4HP PRN IV 08/21/24 08:15 08/24/24 09:53 4 MG Docusate Sodium 100 mg BIDPRN PRN PO 08/21/24 08:15 08/21/24 23:04 100 MG Acetaminophen 650 mg Q6HP PRN PO 08/21/24 08:15 08/24/24 09:54 650 MG Morphine Sulfate 2 mg Q4HPRN PRN IV 08/21/24 08:15 Piperacillin Sod/ Tazobactam Sod 100 ml @ 100 mls/hr Q8HR IV 08/21/24 08:15 08/24/24 05:18 100 MLS/HR Nitroglycerin 0.4 mg Q5MINP PRN SL 08/21/24 08:15 Morphine Sulfate 2 mg Q30M PRN IV 08/21/24 08:15 Levothyroxine Sodium 50 mcg QAM PO 08/21/24 08:57 08/24/24 06:00 50 MCG Diagnostic Test (Pha) 1 strip ACHS 08/21/24 11:30 08/24/24 06:04 1 STRIP Insulin Human Regular HS SC 08/21/24 22:00 Insulin Human Regular AC SC 08/21/24 11:30 08/24/24 06:07 3 UNITS Dextrose 50 ml UD PRN IV 08/21/24 08:30 Famotidine 40 mg DAILY PO 08/22/24 10:00 08/24/24 09:54 40 MG Midodrine 10 mg TID@0600,1200,1800 PO 08/21/24 18:00 08/24/24 05:26 10 MG Ibuprofen 800 mg Q8HP PRN PO 08/21/24 15:45 08/22/24 17:01 800 MG Levofloxacin/ Dextrose 100 ml @ 100 mls/hr DAILY IV 08/22/24 10:00 08/24/24 09:53 100 MLS/HR Sodium Chloride 1,000 ml @ 30 mls/hr Q24H IV 08/22/24 12:00 08/23/24 02:00 30 MLS/HR Ipratropium [place] 0.5 mg Q6HWA [facility] 08/22/24 12:15 08/24/24 06:11 0.5 MG Albuterol 2.5 mg Q6HWA NEB 08/22/24 12:15 08/24/24 06:11 2.5 MG Alprazolam 0.5 mg Q8HPRN PRN PO 08/22/24 12:15 Trazodone HCl 50 mg HSPRN PRN PO 08/22/24 12:15 Albuterol 2.5 mg Q2HPRN PRN NEB 08/22/24 21:45 08/24/24 03:31 2.5 MG Vancomycin HCl 150 ml @ 150 mls/hr Q12H IV 08/23/24 20:00 08/24/24 08:47 150 MLS/HR objective General Appearance: alert, no distress HEENT: EOMI, PERRLA, normal external inspect of ears, no icterus, no nasal drainage Neck: no carotid bruit, no jugular venous distention (JVD), no lymphadenopathy Chest: normal thorax Respiratory: clear to auscultation, normal air movement Cardiovascular: regular rate and rhythm, no diastolic murmur, no jugular venous distention (JVD), no rub, no systolic murmur Abdominal: soft, no hepatomegaly, no mass, no splenomegaly, no tenderness Genitourinary: grossly normal external Musculoskeletal: no joint tenderness, no swelling Extremities: normal pulses, no calf tenderness, no clubbing, no cyanosis, no edema Skin: no bruising, no jaundice, no rash Neurological: alert, No focal deficit laboratory and microbiology Laboratory Tests 08/24/24 04:50 08/23/24 05:51 Test 08/24/24 04:50 Range/Units Serum Glucose 141 H 74-106 mg/dL Problem List 1. Quadriplegic Monitoring 2. Bedbound Monitoring, Turn Q2Hrs 3. Complicated UTI r/t indwelling IV ABX, monitoring 4. DMII with hyperglycemia Insulin SS 5. Hypothyroid Obtain TSH 6. Hypokalemia Replace electrolytes Assessment/Plan Subjective Patient is awake and alert. Objective Patient was admitted for sepsis with shock. Urine culture is positive for Pseudomonas and Klebsiella ESBL. Bacteria is sensitive to Levaquin. Patient states she is slowly starting to feel better. Patient has decubitus ulcers to her left ischium. Plan Continue current treatment. ID consult is still pending. Monitor daily labs. DC planning 1 to 2 days. Dietary Evaluation Review Recommendations by RD: Protein Supplementation Comments: 1) Initiate Blaise @ 1 pk bid 2) Initiate MVI @ 1 tb qd 3) Initite zinc sulfate @ 220 mg qd for 7 days 4) Add 60g CCHO restriction to mechanical soft diet 5) Encourage optimal PO intake 6) Follow-up with urology 7) Continue to monitor I&O, labs, and skin integrity Expected Outcomes/Goals: 1) appetite and labs to improve 2) wound to improve 3) f/u in 3-5 days Plan discussed with: Patient, Other BIJU BRANNON NP Aug 24, 2024 10:20
[2024-08-24] MEDS: POTASSIUM CHL 20 Meq TABLET PO ONE (11:53)
[2024-08-25] VITALS (11 sets, daily range): BP systolic 127–153; BP diastolic 87–98; PULSE 85–100; RESP 15–18; TEMP 97–98.3; O2SAT 95–100
[2024-08-25 09:29] LABS: Hemoglobin 9.4 g/dL (12.2-16.2)
[2024-08-25 09:31] LABS: Hematocrit 28.4 % (36.0-46.0); Mean Corpuscular Hemoglobin 26.7 pg (28.0-32.0); Mean Corpuscular Volume 80.9 fL (80.0-100.0); Nucleated Red Blood Cells % 0.0 %
[2024-08-25 09:37] LABS: Potassium 4.0 mmol/L (3.5-5.1); Sodium 142 mmol/L (136-145)
[2024-08-25 09:38] LABS: Anion Gap 11 (5-15); Carbon Dioxide 21 mmol/L (20-31)
[2024-08-25 09:39] LABS: Calcium 9.0 mg/dL (8.7-10.4)
[2024-08-25 09:46] LABS: BUN/Creatinine Ratio 14.3 (10.0-20.0); Blood Urea Nitrogen < 5 mg/dL (9-23); Chloride 110 mmol/L (98-107); Glucose 109 mg/dL (74-106)
[2024-08-25 10:24] LABS: Iron 30.0 ug/dL (50-170); Total Iron Binding Capacity 245.0 ug/dL (250-425)
[2024-08-25] MEDS ORDERED: LEVO500T91 PO ×2 (12:10→12:39)
--- NOTE | 2024-08-25 12:12 | DVHDS2 ---
Discharge Summary Date of Admission Aug 21, 2024 at 08:11 Date of Discharge: Aug 25, 2024 Labs/Diagnostic Data: Laboratory Results Test 08/25/24 09:16 08/25/24 05:39 08/24/24 19:29 08/24/24 04:50 White Blood Count 3.9 10^3/uL (4.4-10.8) Red Blood Count 3.51 10^6/uL (4.0-5.20) Hemoglobin 9.4 g/dL (12.2-16.2) Hematocrit 28.4 % (36.0-46.0) Mean Corpuscular Volume 80.9 fL (80.0-100.0) Mean Corpuscular Hemoglobin 26.7 pg (28.0-32.0) Mean Corpuscular Hemoglobin Concent 33.0 g/dL (32.0-36.0) Red Cell Distribution Width 17.6 % (11.8-14.3) Platelet Count 289 10^3/uL (140-450) Mean Platelet Volume 7.0 fL (6.9-10.8) Neutrophils (%) (Auto) 62.8 % (37.0-80.0) Lymphocytes (%) (Auto) 23.7 % (10.0-50.0) Monocytes (%) (Auto) 8.8 % (0.0-12.0) Eosinophils (%) (Auto) 4.0 % (0.0-7.0) Basophils (%) (Auto) 0.7 % (0.0-2.0) Neutrophils # (Auto) 2.4 10 ^3/uL (1.6-8.6) Lymphocytes # (Auto) 0.9 10 ^3/uL (0.4-5.4) Monocytes # (Auto) 0.3 10 ^3/uL (0-1.3) Eosinophils # (Auto) 0.2 10 ^3/uL (0-0.8) Basophils # (Auto) 0 10 ^3/uL (0-0.2) Nucleated Red Blood Cells 0.0 % Sodium Level 142 mmol/L (136-145) Potassium Level 4.0 mmol/L (3.5-5.1) Chloride Level 110 mmol/L (98-107) Carbon Dioxide Level 21 mmol/L (20-31) Anion Gap 11 (5-15) Blood Urea Nitrogen < 5 mg/dL (9-23) Creatinine 0.35 mg/dL (0.550-1.02) Glomerular Filtration Rate Calc 122 mL/min (>90) BUN/Creatinine Ratio 14.3 (10.0-20.0) Serum Glucose 109 mg/dL (74-106) Calcium Level 9.0 mg/dL (8.7-10.4) Iron Level 30 ug/dL (50-170) Total Iron Binding Capacity 245 ug/dL (250-425) Percent Iron Saturation 12.2 % (15-50) POC Glucose 111 mg/dl (70-106) Vancomycin Level Trough 14.9 ug/mL (5-10) Phosphorus Level 2.4 mg/dL (2.4-5.1) Test 08/23/24 05:51 08/22/24 04:33 08/21/24 05:29 Magnesium Level 1.8 mg/dL (1.6-2.6) Total Bilirubin 0.4 mg/dL (0.2-1.0) Aspartate Amino Transferase (AST) 21 U/L (<34) Alanine Aminotransferase (ALT) < 9 U/L (7-40) Alkaline Phosphatase 46 U/L (46-116) Total Protein 4.9 g/dL (5.7-8.2) Albumin 3.2 g/dL (3.2-4.8) Urine Color Yellow (Yellow) Urine Clarity Turbid (Clear) Urine pH 5.0 (5.0-9.0) Urine Specific [place] 1.015 (1.001-1.035) Urine Protein Trace (Negative) Urine Ketones Negative (Negative) Urine Blood Negative /uL (Negative) Urine Nitrite Negative (Negative) Urine Bilirubin Negative (Negative) Urine Urobilinogen Normal mg/dL (Negative) Urine Leukocyte Esterase 3+ /uL (Negative) Urine RBC 4 /hpf (0 - 4) Urine Microscopic WBC 82 /HPF (0-5) Urine Squamous Epithelial Cells Few /hpf (<5) Urine Bacteria Many /hpf (None Seen) Urine Mucus Few (None Seen) Urine Glucose Normal mg/dL (Normal) Urine Test Negative (Negative) Hemoglobin A1c 6.1 % A1C (<5.7) Lactic Acid Level 1.6 mmol/L (0.4-2.0) Triglycerides Level 484 mg/dL (< 150) Cholesterol Level 176 mg/dL (< 200) LDL Cholesterol mg/dL (< 100) HDL Cholesterol 30 mg/dL (40-59) Thyroid Stimulating Hormone (TSH) 2.34 uIU/mL (0.55-4.78) Other Laboratory Tests 08/25/24 09:16 Brief Hx & Hospital Course: Patient is a 53 y/o female who is complaining of abdominal pain. Patient states that she has a Hx of UTI and an indwelling catheter. Patient states that she has been experiencing RLQ pain and suprapubic pain radiating to her back. Patient is bed bound and is a quadriplegic. Patient states she has N/V. Patient denies any fever. Patient was admitted on 08/21/2024 for complicated UTI related to chronic torres catheter. Patient gets her torres catheter exchanged every Saturday. Patient urine culture was positive for Pseudomonas and Klebsiella. Patient was given prescription for levaquin which was sensitive to both bacteria. Pt was also seen by infection disease. She will continue levaquin 750 mg PO daily for an additional 14 days. Catheter was exchanged at the day of discharge. There were no complaints or new complaints upon discharge, all questions and concerns were answered. Patient was advised to return to the ER or call 911 if any headaches, dizziness, shortness of breath, chest pain, bleeding, fevers, or worsening of medical condition. Patient/Family was counseled about treatment plan, medications, possible side effects, patient verbalized understanding. All questions were answered to the best of my ability. The patient symptoms improved and they are okay to be DC. Condition at Discharge: Stable Final Diagnosis/Problems List Complicated UTI, Quadriplegic, Bedbound, Complicated UTI r/t indwelling, DMII with hyperglycemia, Hypothyroid, Hypokalemia Discharge Disposition: Home with Health Services Discharge Instruct/Medications Diet: Consistent carbohydrate, Cardiac 2g Na,low cholest Activity: No Restrictions, As Tolerated Follow Up/Referral: pcp 1 week Medications: Levaquin x 1 week Scheduled Ascorbic Acid (Vitamin C), 1,000 MG PO DAILY, (Reported) Otlxstl-Wcdrxqqrgbsif-Kmiuaduw (Headache Relief/Extra Str 250-250-65 mg), 1 TAB PO PRN, (Reported) Atorvastatin Calcium (Atorvastatin Calcium), 1 TAB PO DAILY, (Reported) Bismuth Salicylate (Pepto Bismol), 262 MG PO BID, (Reported) Fenofibrate (Fenofibrate), 160 MG PO DAILY, (Reported) Ferrous Sulfate (Ferosul), 325 MG PO DAILY, (Reported) Levofloxacin Hemihydrate (Levofloxacin), 750 MG PO DAILY Levothyroxine Sodium (Levothyroxine Sodium), 50 MCG PO DAILY, (Reported) Linseed Oil (Flax Seed Oil), 1,000 MG PO DAILY, (Reported) Metformin HCl (Metformin Hydrochloride), 1,000 MG PO BID, (Reported) Midodrine HCl (Midodrine HCl), 10 MG PO DAILY Hiral (Morinda Citrifolia) (Hiral), 400 MG PO PRN, (Reported) [place]-3 Fatty Acids (Fish Oil), 1,000 MG PO DAILY, (Reported) Ondansetron HCl (Ondansetron), 4 MG PO TID, (Reported) Pantoprazole Sodium Sesquihydr (Protonix), 40 MG PO DAILY, (Reported) Probiotic Product (Probiotic Complex/Acidoph), 1 CAP PO DAILY Vitamin A Acetate (Vitamin A), 3,000 MCG PO DAILY, (Reported) Scheduled PRN Acetaminophen (Acetaminophen), 500 MG PO Q6HP PRN for MILD PAIN, (Reported) Miscellaneous Medications Albuterol Sulfate (Albuterol Sulfate), 90 MCG IN, (Reported) Discontinued Medications Bismuth Subsalicylate (Pepto-Bismol To-Go), Unknown Dose PO PRN, (Reported) Cefdinir (Cefdinir), 1 CAP PO BID Ciprofloxacin Hcl (Cipro), 1 TAB PO BID Discharge Statement: "Patient was advised to return to the ER or call 911 if any headaches, dizziness, shortness of breath, chest pain, abdominal pain, bleeding, fevers, or worsening of medical condition. Patient was counseled about treatment plan, medications, possible side effects, patientverbalized understanding. All questions were answered to the best of my ability. This discharge took greater then 30 minutes in planning, reviewing documentation, counseling the patient, and discussing with other team members." ASSESSMENT ASSESSMENT Assessment Complicated UTI BIJU BRANNON CERTIFIED WELDING INSPECTOR Aug 25, 2024 12:12
--- NOTE | 2024-08-25 13:10 | DVHINCON2 ---
Date of service: Aug 24, 2024 Referring Physician Molly Reason for Consultation UTI Family History: Alzheimer's disease G8 FATHER (UNKNOWN) Cardiovascular disease G8 FATHER Cerebrovascular accident (CVA) G8 FATHER Chronic obstructive pulmonary disease G8 FATHER Diabetes mellitus G8 MOTHER G8 BROTHER FH: CHF (congestive heart failure) G8 FATHER FH: heart attack G8 FATHER, Onset:50's - 60 Hypercholesterolemia G8 MOTHER, Onset:30's - 40 Hypertension G8 MOTHER, Onset:50's - 60 Hypotension Allergies: Uncoded Allergies: Adhesive Tape/Gel (Allergy, Mild, 03/26/20) RASH Home Meds Active Scripts Levofloxacin Hemihydrate (LEVOFLOXACIN) 500 Mg Tab, 750 MG PO DAILY for 14 Days, #21 TAB Prov:VASYL DURHAM MD 08/25/24 Cefdinir (Cefdinir) 300 Mg Cap, 1 CAP PO BID, #14 CAP Prov:HILLARY WATSON MD 12/19/20 Midodrine HCl (Midodrine HCl) 10 Mg Tab, 10 MG PO DAILY, #14 TAB Prov:RAY RAO MD 05/07/20 Probiotic Product (PROBIOTIC COMPLEX/ACIDOPH) Acidophi Cap, 1 CAP PO DAILY, #14 CAP Prov:RAY RAO MD 05/07/20 Ciprofloxacin Hcl (Cipro) 500 Mg Tab, 1 TAB PO BID, #14 TAB Prov:RAY RAO MD 05/07/20 Reported Medications Pantoprazole Sodium Sesquihydr (Protonix) 40 Mg Tab, 40 MG PO DAILY for gerd, #30 TAB 08/23/24 Ondansetron HCl (Ondansetron) 4 Mg Tab, 4 MG PO TID, TAB 08/23/24 Ferrous Sulfate (Ferosul) 325 Mg Tab, 325 MG PO DAILY for anemia, TAB 08/23/24 Vitamin A Acetate (VITAMIN A) 8,000 Unit Tab, 3000 MCG PO DAILY, TAB 08/23/24 Albuterol Sulfate (Albuterol Sulfate) 2 Mg Tab, 90 MCG IN, MG 08/23/24 Acetaminophen (Acetaminophen) 325 Mg Tab, 500 MG PO Q6HP PRN for MILD PAIN for 30 Days, MG 0 Refills 08/23/24 Bismuth Salicylate (Pepto Bismol) 262 Mg Cap, 262 MG PO BID for digestion, CAP 08/23/24 Levothyroxine Sodium (Levothyroxine Sodium) 50 Mcg Cap, 50 MCG PO DAILY, CAP 03/26/20 Fenofibrate (FENOFIBRATE) 145 Mg Tab, 160 MG PO DAILY, TAB 03/26/20 Atorvastatin Calcium (ATORVASTATIN CALCIUM) 20 Mg Tab, 1 TAB PO DAILY, #30 TAB 5 Refills 03/26/20 Ascorbic Acid (Vitamin C) 1,000 Mg Tab, 1000 MG PO DAILY, TAB 03/01/20 Dtysyrc-Itzltrihoustj-Kxqfrtfj (Headache Relief/Extra Str 250-250-65 mg) 1 Tab Tab, 1 TAB PO PRN, TAB 09/07/19 [place]-3 Fatty Acids (FISH OIL) 1,000 Mg Cap, 1000 MG PO DAILY, CAP 09/07/19 Metformin HCl (Metformin Hydrochloride) 1,000 Mg Tab, 1000 MG PO BID, TAB 09/07/19 Hiral (Morinda Citrifolia) (Hiral) 125 Mg Cap, 400 MG PO PRN, CAP 03/17/19 Linseed Oil (Flax Seed Oil) 1,000 Mg Cap, 1000 MG PO DAILY, CAP 03/17/19 Discontinued Reported Medications Bismuth Subsalicylate (PEPTO-BISMOL TO-GO) Unknown Strength Chw, PO PRN, TAB.CHEW 09/07/19 Vital Signs Vital Signs Date Time Temp Pulse Resp B/P (MAP) Pulse Ox O2 Delivery O2 Flow Rate FiO2 08/25/24 11:30 95 16 100 08/25/24 11:24 Room Air 0.0 08/25/24 11:24 21 08/25/24 09:08 127/93 08/25/24 09:00 97.8 97.8 Labs/Diagnostic Data Labs Test 08/25/24 09:16 08/25/24 05:39 08/24/24 19:29 08/24/24 04:50 Range/Units White Blood Count 3.9 #L 4.4-10.8 10^3/uL Red Blood Count 3.51 L 4.0-5.20 10^6/uL Hemoglobin 9.4 #L 12.2-16.2 g/dL Hematocrit 28.4 #L 36.0-46.0 % Mean Corpuscular Volume 80.9 80.0-100.0 fL Mean Corpuscular Hemoglobin 26.7 L 28.0-32.0 pg Mean Corpuscular Hemoglobin Concent 33.0 32.0-36.0 g/dL Red Cell Distribution Width 17.6 H 11.8-14.3 % Platelet Count 289 140-450 10^3/uL Mean Platelet Volume 7.0 6.9-10.8 fL Neutrophils (%) (Auto) 62.8 37.0-80.0 % Lymphocytes (%) (Auto) 23.7 10.0-50.0 % Monocytes (%) (Auto) 8.8 0.0-12.0 % Eosinophils (%) (Auto) 4.0 0.0-7.0 % Basophils (%) (Auto) 0.7 0.0-2.0 % Neutrophils # (Auto) 2.4 1.6-8.6 10 ^3/uL Lymphocytes # (Auto) 0.9 0.4-5.4 10 ^3/uL Monocytes # (Auto) 0.3 0-1.3 10 ^3/uL Eosinophils # (Auto) 0.2 0-0.8 10 ^3/uL Basophils # (Auto) 0 0-0.2 10 ^3/uL Nucleated Red Blood Cells 0.0 % Sodium Level 142 136-145 mmol/L Potassium Level 4.0 3.5-5.1 mmol/L Chloride Level 110 H 98-107 mmol/L Carbon Dioxide Level 21 20-31 mmol/L Anion Gap 11 5-15 Blood Urea Nitrogen < 5 L 9-23 mg/dL Creatinine 0.35 L 0.550-1.02 mg/dL Glomerular Filtration Rate Calc 122 >90 mL/min BUN/Creatinine Ratio 14.3 10.0-20.0 Serum Glucose 109 H 74-106 mg/dL Calcium Level 9.0 8.7-10.4 mg/dL Iron Level 30 L 50-170 ug/dL Total Iron Binding Capacity 245 L 250-425 ug/dL Percent Iron Saturation 12.2 L 15-50 % POC Glucose 111 H 70-106 mg/dl Vancomycin Level Trough 14.9 H 5-10 ug/mL Phosphorus Level 2.4 2.4-5.1 mg/dL Test 08/23/24 05:51 08/22/24 04:33 08/21/24 05:29 Range/Units Magnesium Level 1.8 1.6-2.6 mg/dL Total Bilirubin 0.4 0.2-1.0 mg/dL Aspartate Amino Transferase (AST) 21 <34 U/L Alanine Aminotransferase (ALT) < 9 7-40 U/L Alkaline Phosphatase 46 46-116 U/L Total Protein 4.9 L 5.7-8.2 g/dL Albumin 3.2 3.2-4.8 g/dL Urine Color Yellow Yellow Urine Clarity Turbid H Clear Urine pH 5.0 5.0-9.0 Urine Specific [place] 1.015 1.001-1.035 Urine Protein Trace H Negative Urine Ketones Negative Negative Urine Blood Negative Negative /uL Urine Nitrite Negative Negative Urine Bilirubin Negative Negative Urine Urobilinogen Normal Negative mg/dL Urine Leukocyte Esterase 3+ Negative /uL Urine RBC 4 0 - 4 /hpf Urine Microscopic WBC 82 H 0-5 /HPF Urine Squamous Epithelial Cells Few <5 /hpf Urine Bacteria Many H None Seen /hpf Urine Mucus Few None Seen Urine Glucose Normal Normal mg/dL Urine Test Negative Negative Hemoglobin A1c 6.1 H <5.7 % A1C Lactic Acid Level 1.6 0.4-2.0 mmol/L Triglycerides Level 484 H < 150 mg/dL Cholesterol Level 176 < 200 mg/dL LDL Cholesterol < 100 mg/dL HDL Cholesterol 30 L 40-59 mg/dL Thyroid Stimulating Hormone (TSH) 2.34 0.55-4.78 uIU/mL Microbiology Date/Time Source Procedure Growth Status 08/21/24 05:29 Urine - [place] Urine Culture - Final Pseudomonas aeruginosa Enterobacter aerogenes Complete 08/21/24 05:29 Blood Blood Culture - Final Klebsiella pneumoniae - ESBL Complete Problems(with codes): (1) Pyelonephritis (2) UTI (urinary tract infection) (3) Hypotension (4) Paraplegia (5) Diabetes 1.5, managed as type 2 Plan/Recommendation ASSESSMENT AND PLAN: ID Problem List: - Quadriplegia - Recurrent urinary tract infections (UTIs) - Possible urosepsis - Diabetes mellitus - Hypercholesterolemia - Hypothyroidism Assessment This is a 53-year-old female with a past medical history significant for quadriplegia, diabetes mellitus (on metformin), hypercholesterolemia (on fenofibrate), hypothyroidism (on levothyroxine), and recurrent UTIs, who presents with one week of right lower quadrant and suprapubic abdominal pain radiating to her back, nausea, vomiting, and cloudy urine following a Patterson catheter change. She is chronically on midodrine. On exam, the patient exhibits right groin lymphadenopathy and right costovertebral angle (CVA) tenderness with associated flank pain. Severe infection is suspected with concern for urosepsis. Initial laboratory studies notable for WBC 8.4, hemoglobin 10.0, platelets 223, sodium not specified, A1c 6.1, glucose 167, AST 31, ALT 12. Rapid urine test negative. Urine culture is positive for multiple gram-negative rods; speciation and sensitivities pending. CT abdomen/pelvis shows normal appendix, nonspecific stranding in the right paranephric region with small fluid collection; pyelonephritis cannot be excluded. The patient has been empirically started on intravenous vancomycin and Zosyn, with recommendations to monitor response, maintain glucose <180 mg/dL, and exchange the Patterson catheter given suspicion for catheter-associated infection. Plan: - Continue IV vancomycin and Zosyn - Monitor and trend urine culture and blood culture results, follow up on specia tion and sensitivities - Exchange Patterson catheter given likely source of infection - Monitor vital signs, clinical status, and glucose (keep <180) - Monitor laboratory studies including CBC and chemistry panel closely - Monitor for signs of worsening infection or sepsis - Follow-up on imaging as needed - No prior history of VRE, will continue monitoring - Treat comorbid conditions (diabetes, hypercholesterolemia, hypothyroidism) per home regimens Isolation Precautions: Not specifically indicated; standard precautions recommended Assessment and plan discussed with the patient as written above. Plan is subject to change pending incorporation of new diagnostic or clinical information. Updates will be made as necessary. Thank you for the consult. Please contact the primary team for further questions or updates. Vasyl Durham M.D. [facility] History: The patient's clinical record and medications were reviewed in detail, and the patient was seen and examined. History obtained from: patient 53-year-old female with a history of quadriplegia, diabetes, hypercholesterolemia, hypothyroidism, and recurrent urinary tract infections who presents with one week of right lower quadrant abdominal pain, suprapubic pain radiating to her back, nausea, vomiting, and cloudy urine following a Patterson catheter change last week. Allergic to medical adhesive tape. Family history is significant for cardiovascular disease, Alzheimer's disease, diabetes, congestive heart failure, hypercholesterolemia, and hypertension. Reports chronic use of midodrine. Review of Systems: A complete 10-system review of systems was completed and negative except as noted in the HPI or here. ROS: - CONSTITUTIONAL: Denies weight loss, fever, or chills. - HEENT: Not discussed. - RESPIRATORY: Not discussed. - CV: Not discussed. - GI: Endorses abdominal pain, nausea, vomiting. - : Endorses cloudy urine, suprapubic pain. - MSK: Not discussed. - SKIN: Not discussed. - NEUROLOGICAL: No new neurological complaints. - PSYCHIATRIC: Not discussed. Past Medical History: Quadriplegia Recurrent urinary tract infections Diabetes mellitus Hypercholesterolemia Hypothyroidism Past Surgical History: Not provided in transcript. Home Medications: Metformin dose and frequency not specified. Fenofibrate dose and frequency not specified. Levothyroxine dose and frequency not specified. Midodrine dose and frequency not specified. No other home medications provided; empirically started on IV vancomycin and Zosyn inpatient. Medication doses/frequencies not specified in transcript. Allergies: Allergic to medical adhesive tape. Family History: Family history significant for cardiovascular disease, Alzheimer's disease, diabetes, congestive heart failure, hypercholesterolemia, and hypertension. Social History: Not provided in transcript. Objective: Vital Signs on Arrival: Temp: 99.6 F, BP: 111/32 mmHg, Pulse: 117 bpm, Resp: 18, SpO2: 95% on room air Most Recent Vital Signs: Not further specified in transcript. Admission Weight: Not provided in transcript. Physical Exam: General: NAD Neck: Supple. No masses. HEENT: PERRL. Normal lids and conjunctiva. Moist mucous membranes. Oropharynx without lesions, exudates or excessive erythema. Normal appearance of the external aspects of the nose and ears. Heart: Regular rhythm, normal rate. No murmur. No lower extremity edema. Lungs: Normal respiratory effort. Clear to auscultation bilaterally. No wheezes. No crackles. Abdomen: Soft. Non-tender. Non-distended. No masses or abdominal hernia. Right lower quadrant and suprapubic tenderness. Msk: No digital cyanosis. Normal strength and tone in all 4 limbs. Skin: Warm and dry, no rashes. Neuro: Alert. No facial droop or slurred speech. Extra-ocular movements intact. Sensation intact to soft touch in all 4 limbs. Quadriplegic (chronic). Psych: Appropriate mood. Full affect. Oriented to person, place, time, and situation. Lines: Patterson catheter in place. Diagnostic Studies: Available diagnostic studies were reviewed personally. Significant findings outlined below or addressed in the Assessment and Plan above. Pertinent Laboratory Results: WBC: 8.4 - Hemoglobin: 10.0 - Platelets: 223 - A1c: 6.1 - Glucose: 167 AST: 31 ALT: 12 - Urine culture: positive for multiple gram-negative rods, speciation and sensitivities pending. - Urine test: Negative Pertinent Imaging: - CT abdomen/pelvis: Normal appendix, nonspecific stranding surrounding the right paranephric region with small fluid collection; pyelonephritis cannot be excluded. Plan discussed with: Patient VASYL DURHAM MD Aug 25, 2024 13:10
--- NOTE | 2024-08-25 13:12 | DVHPN2 ---
Consult Progress Note Date Seen: Aug 25, 2024 Subjective Patient reports: Feels better Objective vital signs Vital Sign Date Time Temp Pulse Resp B/P (MAP) Pulse Ox O2 Delivery O2 Flow Rate FiO2 08/25/24 11:30 95 16 100 08/25/24 11:24 Room Air 0.0 08/25/24 11:24 21 08/25/24 09:08 127/93 08/25/24 09:00 97.8 97.8 Total Intake and Output 08/24/24 08/24/24 08/25/24 15:00 23:00 07:00 Intake Total 100 ml 700 ml 320 ml Output Total 1700 ml 1175 ml Balance 100 ml -1000 ml -855 ml medications Current Medications Medications Dose Ordered Sig/Mechelle Route Start Time Stop Time Status Last Admin Dose Admin Vancomycin HCl 0 ml @ 0 mls/hr UD IV 08/21/24 06:00 Acetaminophen/ Hydrocodone Bitart 1 tab Q4HP PRN PO 08/21/24 08:15 08/24/24 21:34 Ondansetron HCl 4 mg Q4HP PRN IV 08/21/24 08:15 08/24/24 21:33 Docusate Sodium 100 mg BIDPRN PRN PO 08/21/24 08:15 08/21/24 23:04 Acetaminophen 650 mg Q6HP PRN PO 08/21/24 08:15 08/25/24 10:15 Morphine Sulfate 2 mg Q4HPRN PRN IV 08/21/24 08:15 Nitroglycerin 0.4 mg Q5MINP PRN SL 08/21/24 08:15 Morphine Sulfate 2 mg Q30M PRN IV 08/21/24 08:15 Levothyroxine Sodium 50 mcg QAM PO 08/21/24 08:57 08/25/24 05:05 Diagnostic Test (Pha) 1 strip ACHS 08/21/24 11:30 08/25/24 05:43 Insulin Human Regular HS SC 08/21/24 22:00 Insulin Human Regular AC SC 08/21/24 11:30 08/24/24 11:48 Dextrose 50 ml UD PRN IV 08/21/24 08:30 Famotidine 40 mg DAILY PO 08/22/24 10:00 08/25/24 10:14 Midodrine 10 mg TID@0600,1200,1800 PO 08/21/24 18:00 08/25/24 05:05 Ibuprofen 800 mg Q8HP PRN PO 08/21/24 15:45 08/22/24 17:01 Levofloxacin/ Dextrose 100 ml @ 100 mls/hr DAILY IV 08/22/24 10:00 08/25/24 10:15 Sodium Chloride 1,000 ml @ 30 mls/hr Q24H IV 08/22/24 12:00 08/23/24 02:00 Ipratropium Lerna 0.5 mg Q6HWA NEB 08/22/24 12:15 08/25/24 11:24 Albuterol 2.5 mg Q6HWA NEB 08/22/24 12:15 08/25/24 11:24 Alprazolam 0.5 mg Q8HPRN PRN PO 08/22/24 12:15 Trazodone HCl 50 mg HSPRN PRN PO 08/22/24 12:15 Albuterol 2.5 mg Q2HPRN PRN NEB 08/22/24 21:45 08/24/24 03:31 Vancomycin HCl 150 ml @ 150 mls/hr Q12H IV 08/23/24 20:00 08/25/24 08:40 laboratory and microbiology Laboratory Tests 08/25/24 09:16 Test 08/25/24 09:16 Range/Units Serum Glucose 109 H 74-106 mg/dL Problem List/Assessment/Plan Problem List/Assessment/Plan patient seen at bedside, full note to follow clinically improving recommend torres catheter replacement Pseudomonas and ESBL Klebsiella will be covered by 750mg levofloxacin, recommend daily levaquin for 14 more days. continue meropenem while inpatient Plan discussed with: Patient Dietary Evaluation Review Recommendations by RD: Protein Supplementation Comments: 1) Initiate Blaise @ 1 pk bid 2) Initiate MVI @ 1 tb qd 3) Initite zinc sulfate @ 220 mg qd for 7 days 4) Add 60g CCHO restriction to mechanical soft diet 5) Encourage optimal PO intake 6) Follow-up with urology 7) Continue to monitor I&O, labs, and skin integrity Expected Outcomes/Goals: 1) appetite and labs to improve 2) wound to improve 3) f/u in 3-5 days VASYL SHAH MD Aug 25, 2024 13:12
== END 2024-08-25 16:40 | disposition home health service (06) | DRG 466 ==
LOC: EDBD 04:18 → ER 04:18 → OVERFLOW 08:11 → TELE-CENTR 08-22 23:57 → CENTRAL 08-24 13:29
PROVIDERS: ADMIT Nurse Practitioner; ATTEND Nurse Practitioner
DX: T83.511A Infection and inflammatory reaction due to indwelling urethral catheter, initial encounter (principal); G82.50 Quadriplegia, unspecified; L89.324 Pressure ulcer of left buttock, stage 4; E03.9 Hypothyroidism, unspecified; E11.65 Type 2 diabetes mellitus with hyperglycemia; B96.5 Pseudomonas (aeruginosa) (mallei) (pseudomallei) as the cause of diseases classified elsewhere; B96.1 Klebsiella pneumoniae [K. pneumoniae] as the cause of diseases classified elsewhere; J44.89 Other specified chronic obstructive pulmonary disease; E78.00 Pure hypercholesterolemia, unspecified; N39.0 Urinary tract infection, site not specified; Z74.01 Bed confinement status; I25.10 Atherosclerotic heart disease of native coronary artery without angina pectoris; E87.6 Hypokalemia; Z91.048 Other nonmedicinal substance allergy status; Z87.440 Personal history of urinary (tract) infections; Z83.3 Family history of diabetes mellitus; Z81.8 Family history of other mental and behavioral disorders; Z82.5 Family history of asthma and other chronic lower respiratory diseases; Z82.49 Family history of ischemic heart disease and other diseases of the circulatory system; Z82.3 Family history of stroke; Z82.0 Family history of epilepsy and other diseases of the nervous system; Z79.84 Long term (current) use of oral hypoglycemic drugs; Y84.6 Urinary catheterization as the cause of abnormal reaction of the patient, or of later complication, without mention of misadventure at the time of the procedure; Y92.89 Other specified places as the place of occurrence of the external cause; Z79.82 Long term (current) use of aspirin
CPT/HCPCS: 36415; 74176; 80048; 80053; 80061; 80202; 81001; 81025; 82565; 82962; 83036; 83540; 83550; 83605; 83735; 84100; 84443; 85025; 87040; 87077; 87086; 87088; 87186; 93306; 94640; 96365; 96375; G0378; J1815; J1956; J2405; J2543